=== PATIENT | male | born 1990 | race Caucasian/White ===

== ENCOUNTER 2017-10-05 15:08 | Emergency (ER) | payer MEDICAID ==
[~2017-10-05] VITALS: Ht 175.3 cm; Wt 100.0 kg
[~2017-10-05 15:08] MED LIST: ONDA8TAB9 PO
[2017-10-05] MEDS ORDERED: proCHLORperazine 10 MG/2 ml inj IV ONE (15:15)
[2017-10-05] MEDS ORDERED: normal saline 1000ML IV soln IVB ONE (15:15)
[2017-10-05 16:25] LABS: BASOPHILS % (AUTO) 0.1 % (0-1); EOSINOPHILS # (AUTO) 0.3 X10'3 (0-0.9); EOSINOPHILS % (AUTO) 1.9 % (0-6); HEMATOCRIT 41.6 % (42.0-52.0); LYMPHOCYTES % (AUTO) 14.1 % (21-51); MEAN CORPUSCULAR HEMOGLOBIN 29.2 PG (27.0-31.0); MEAN CORPUSCULAR HGB CONC 33.6 % (33.0-36.5); MEAN CORPUSCULAR VOLUME 87.1 FL (78-98); MEAN PLATELET VOLUME 8.3 FL (7.4-10.4); MONOCYTES # (AUTO) 0.7 X10'3 (0-0.9); MONOCYTES % (AUTO) 4.8 % (2-12); NEUTROPHILS # (AUTO) 11.1 X10'3 (1.8-7.7); NEUTROPHILS % (AUTO) 79.1 % (42-75); PLATELET COUNT 287 X10'3 (140-440); RED BLOOD COUNT 4.78 X10'6 (4.70-6.10); RED CELL DISTRIBUTION WIDTH 13.1 % (11.5-14.5)
[2017-10-05 16:42] LABS: CLARITY,URINE TURBID (Clear); GLUCOSE, URINE NEGATIVE (Neg); KETONES,URINE TRACE mg/dl (Neg); LEUKOCYTE ESTERASE ,URINE NEGATIVE (Neg); NITRITES, URINE NEGATIVE (Neg); OCCULT BLOOD,URINE NEGATIVE (Neg); PH,URINE 8.5 (4.8-8.0); PROTEIN,URINE 100 mg/dl (Neg)
[2017-10-05 16:43] LABS: COLOR,URINE DARK YELLOW (Yellow); UA COLLECTION TYPE CLN CATCH MIDSTREAM
[2017-10-05 16:43] LABS: ALANINE AMINOTRANSFERASE 24 U/L (12-78); ALBUMIN 3.7 G/DL (3.4-5.0); ALBUMIN/GLOBULIN RATIO 1.1 (1.1-1.5); ALKALINE PHOSPHATASE 90 IU/L (46-116); ANION GAP 9 (8-16); BILIRUBIN,TOTAL 0.3 MG/DL (0.1-1.0); BLOOD UREA NITROGEN 12 MG/DL (7-18); CALCIUM 8.9 MG/DL (8.5-10.1); CHLORIDE 108 MMOL/L (99-107); GLUCOSE 131 MG/DL (70-104); LIPASE < 50 U/L (73-393); SODIUM 145 MMOL/L (135-145); eGFR > 90 ML/MIN
[2017-10-05 16:49] LABS: AMORPHOUS PHOSPHATES 3+; BACTERIA,URINE FEW /HPF (Neg); RBC,URINE NONE SEEN /HPF (0-2); SPERM FEW /HPF (NEGATIVE); SQUAMOUS EPITHELIAL CELL,UR NONE SEEN /LPF (FEW); WBC,URINE 0-4 /HPF (0-4)
[2017-10-05 16:56] LABS: ASPARTATE AMINO TRANSFERASE 23 U/L (10-37); POTASSIUM 3.4 MMOL/L (3.5-5.1)
[2017-10-05] MEDS ORDERED: HYDROmorphone inj. 0.5 MG/0.5 ML DISP.SYRIN IV ONE (17:00)
[2017-10-05] MEDS ORDERED: haloperidol lactate 5mg/ml inj IM ONE (17:30)
[2017-10-05] MEDS ORDERED: diphenhydrAMINE 50 mg/ml inj IV ONE (17:30)
[2017-10-05] MEDS ORDERED: ONDA4TAB6 PO (20:01)
[2017-10-05 20:52] VITALS: BP 142/93
== END 2017-10-05 20:54 | disposition home or self-care (01) ==
LOC: ER 15:09
DX: R10.13 Epigastric pain (principal); R11.2 Nausea with vomiting, unspecified; R19.7 Diarrhea, unspecified; E11.9 Type 2 diabetes mellitus without complications; F12.10 Cannabis abuse, uncomplicated; F11.10 Opioid abuse, uncomplicated; F17.200 Nicotine dependence, unspecified, uncomplicated; Z88.8 Allergy status to other drugs, medicaments and biological substances; Z79.899 Other long term (current) drug therapy
CPT/HCPCS: 36415; 80053; 81001; 82948; 83690; 85025; 96361; 96372; 96374; 96375; 99284; J0780; J1170; J1200; J1630; J7030

== ENCOUNTER 2018-01-27 13:47 | Emergency (ER) | payer MEDICAID ==
[~2018-01-27] VITALS: Ht 175.3 cm; Wt 90.0 kg
[~2018-01-27 13:47] MED LIST changes: +ONDA4TAB6 PO
[2018-01-27 14:26] LABS: BASOPHILS % (AUTO) 0 % (0-1); EOSINOPHILS % (AUTO) 0 % (0-6); HEMATOCRIT 46.4 % (42.0-52.0); HEMOGLOBIN 15.7 g/dl (14.0-17.9); LYMPHOCYTES # (AUTO) 0.4 X10'3 (1.1-4.8); LYMPHOCYTES % (AUTO) 2.7 % (21-51); MEAN CORPUSCULAR HEMOGLOBIN 29.5 PG (27.0-31.0); MEAN CORPUSCULAR HGB CONC 33.8 % (33.0-36.5); MEAN CORPUSCULAR VOLUME 87.1 FL (78-98); MEAN PLATELET VOLUME 8.1 FL (7.4-10.4); MONOCYTES # (AUTO) 1.1 X10'3 (0-0.9); MONOCYTES % (AUTO) 6.7 % (2-12); NEUTROPHILS % (AUTO) 90.6 % (42-75); PLATELET COUNT 326 X10'3 (140-440); RED BLOOD COUNT 5.32 X10'6 (4.70-6.10); RED CELL DISTRIBUTION WIDTH 13.6 % (11.5-14.5); WHITE BLOOD COUNT 16.6 X10'3 (4.5-11.0)
[2018-01-27 14:38] LABS: ANISOCYTOSIS 1+; PLATELET ESTIMATE NORMAL; TOTAL CELLS COUNTED 100
[2018-01-27 14:41] LABS: ALANINE AMINOTRANSFERASE 20 U/L (12-78); ALBUMIN/GLOBULIN RATIO 1.1 (1.1-1.5); ALKALINE PHOSPHATASE 90 IU/L (46-116); ANION GAP 12 (8-16); ASPARTATE AMINO TRANSFERASE 14 U/L (10-37); BILIRUBIN,TOTAL 0.8 MG/DL (0.1-1.0); BLOOD UREA NITROGEN 18 MG/DL (7-18); BUN/CREATININE RATIO 19.8 (5.4-32.0); CALCIUM 8.9 MG/DL (8.5-10.1); CHLORIDE 106 MMOL/L (99-107); CREATININE 0.91 MG/DL (0.60-1.10); GLUCOSE 139 MG/DL (70-104); LIPASE < 50 U/L (73-393); POTASSIUM 3.6 MMOL/L (3.5-5.1); SODIUM 142 MMOL/L (135-145); TOTAL CARBON DIOXIDE 24.4 MMOL/L (24-32); TOTAL PROTEIN 7.6 G/DL (6.4-8.2); eGFR > 90 ML/MIN
[2018-01-27] MEDS ORDERED: ketorolac tromethamine 15mg/ml inj. IV ONE (15:15)
[2018-01-27] MEDS ORDERED: normal saline 1000ML IV soln IVB ONE ×3 (15:15→18:35)
[2018-01-27] MEDS ORDERED: ondansetron/PF 4mg/2ml inj IV ONE (15:15)
[2018-01-27] MEDS ORDERED: LORazepam 2 mg/ml vial IV ONE (16:45)
[2018-01-27 17:24] LABS: GASTRIC OCCULT BLOOD POSITIVE (Neg)
[2018-01-27 17:29] LABS: CLARITY,URINE CLEAR (Clear); COLOR,URINE YELLOW (Yellow); GLUCOSE, URINE NEGATIVE (Neg); KETONES,URINE 40 mg/dl (Neg); LEUKOCYTE ESTERASE ,URINE NEGATIVE (Neg); NITRITES, URINE NEGATIVE (Neg); OCCULT BLOOD,URINE NEGATIVE (Neg); PH,URINE 6.5 (4.8-8.0); PROTEIN,URINE 100 mg/dl (Neg); UROBILINOGEN,URINE 0.2 E.U/dL (0.2-1.0)
[2018-01-27 17:30] LABS: UA COLLECTION TYPE CLN CATCH MIDSTREAM
[2018-01-27 17:34] LABS: BACTERIA,URINE NONE SEEN /HPF (Neg); MUCUS STRANDS MODERATE /LPF (Neg); RBC,URINE NONE SEEN /HPF (0-2); SQUAMOUS EPITHELIAL CELL,UR FEW /LPF (FEW); WBC,URINE 0-4 /HPF (0-4)
[2018-01-27] MEDS ORDERED: proCHLORperazine 10 MG/2 ml inj IV ONE (18:35)
[2018-01-27] MEDS ORDERED: insulin regular, human 10 units/0.1 ml syringe IV ONE (19:30)
[2018-01-27] MEDS ORDERED: pantoprazole 40 MG vial IV ONE (20:40)
[2018-01-27 20:49] VITALS: BP 102/54
[2018-01-27 21:39] LABS: URINE AMPHETAMINE SCREEN NEGATIVE (Neg); URINE BARBITUATE SCREEN NEGATIVE (Neg); URINE BENZODIAZEPINES SCREEN NEGATIVE (Neg); URINE CANNABINOID SCREEN POSITIVE (Neg); URINE COCAINE SCREEN NEGATIVE (Neg); URINE METHADONE SCREEN NEGATIVE (Neg); URINE OPIATE SCREEN NEGATIVE (Neg); URINE PHENCYCLIDINE SCREEN NEGATIVE (Neg)
[2018-01-27] MEDS ORDERED: ONDA4TAB9 SL (21:42)
== END 2018-01-27 21:54 | disposition home or self-care (01) ==
LOC: ER 13:48
DX: E11.9 Type 2 diabetes mellitus without complications (principal); K29.70 Gastritis, unspecified, without bleeding; F12.10 Cannabis abuse, uncomplicated; F11.10 Opioid abuse, uncomplicated; Z88.8 Allergy status to other drugs, medicaments and biological substances; Z79.899 Other long term (current) drug therapy
CPT/HCPCS: 36415; 80053; 80305; 81001; 82271; 82948; 83690; 85025; 96361; 96374; 96375; 99285; C9113; J0780; J1815; J1885; J2060; J2405; J7030; 99284

== ENCOUNTER 2018-01-29 06:23 | Emergency (ER) | payer MEDICAID ==
[~2018-01-29] VITALS: Ht 175.3 cm; Wt 90.0 kg
[~2018-01-29 06:23] MED LIST changes: +ONDA4TAB9 SL
[2018-01-29] MEDS ORDERED: ketorolac trometh. 30mg/ml inj. IV ONE (06:45)
[2018-01-29] MEDS ORDERED: morphine 4 MG/ML inj SYRINge IV ONE (06:45)
[2018-01-29] MEDS ORDERED: LORazepam 2 mg/ml vial IV ONE (06:45)
[2018-01-29] MEDS ORDERED: normal saline 1000ML IV soln IVB ONE ×2 (06:45)
[2018-01-29] MEDS ORDERED: metoclopramide 5 mg/ml inj IV ONE (06:45)
[2018-01-29] MEDS ORDERED: diphenhydrAMINE 50 mg/ml inj IV ONE (06:45)
[2018-01-29 06:52] LABS: BASOPHILS % (AUTO) 0.3 % (0-1); EOSINOPHILS # (AUTO) 0.1 X10'3 (0-0.9); HEMATOCRIT 39.7 % (42.0-52.0); HEMOGLOBIN 13.4 g/dl (14.0-17.9); LYMPHOCYTES # (AUTO) 2.2 X10'3 (1.1-4.8); LYMPHOCYTES % (AUTO) 18.2 % (21-51); MEAN CORPUSCULAR HEMOGLOBIN 29.7 PG (27.0-31.0); MEAN CORPUSCULAR HGB CONC 33.7 % (33.0-36.5); MEAN CORPUSCULAR VOLUME 88.2 FL (78-98); MONOCYTES # (AUTO) 0.9 X10'3 (0-0.9); MONOCYTES % (AUTO) 7.1 % (2-12); NEUTROPHILS # (AUTO) 8.9 X10'3 (1.8-7.7); NEUTROPHILS % (AUTO) 73.4 % (42-75); PLATELET COUNT 322 X10'3 (140-440); RED CELL DISTRIBUTION WIDTH 13.5 % (11.5-14.5); WHITE BLOOD COUNT 12.1 X10'3 (4.5-11.0)
[2018-01-29 06:54] LABS: CLARITY,URINE SLIGHTLY CLOUDY (Clear); COLOR,URINE AMBER (Yellow); GLUCOSE, URINE NEGATIVE (Neg); KETONES,URINE 15 mg/dl (Neg); LEUKOCYTE ESTERASE ,URINE NEGATIVE (Neg); NITRITES, URINE NEGATIVE (Neg); OCCULT BLOOD,URINE NEGATIVE (Neg); PH,URINE 6.5 (4.8-8.0); PROTEIN,URINE 30 mg/dl (Neg)
[2018-01-29] MEDS ORDERED: ketorolac tromethamine 15mg/ml inj. IV ONE (06:55)
[2018-01-29 07:01] LABS: UA COLLECTION TYPE CLN CATCH MIDSTREAM
[2018-01-29 07:03] LABS: BACTERIA,URINE NONE SEEN /HPF (Neg); MUCUS STRANDS MANY /LPF (Neg); RBC,URINE NONE SEEN /HPF (0-2); SQUAMOUS EPITHELIAL CELL,UR NONE SEEN /LPF (FEW)
[2018-01-29 07:04] LABS: SPERM MODERATE /HPF (NEGATIVE)
[2018-01-29 07:06] LABS: ALANINE AMINOTRANSFERASE 27 U/L (12-78); ALBUMIN 3.7 G/DL (3.4-5.0); ALBUMIN/GLOBULIN RATIO 1.1 (1.1-1.5); ALKALINE PHOSPHATASE 79 IU/L (46-116); ANION GAP 12 (8-16); ASPARTATE AMINO TRANSFERASE 15 U/L (10-37); BILIRUBIN,TOTAL 0.3 MG/DL (0.1-1.0); BLOOD UREA NITROGEN 12 MG/DL (7-18); BUN/CREATININE RATIO 12.4 (5.4-32.0); CALCIUM 8.8 MG/DL (8.5-10.1); CHLORIDE 106 MMOL/L (99-107); CREATININE 0.97 MG/DL (0.60-1.10); GLUCOSE 113 MG/DL (70-104); LIPASE < 50 U/L (73-393); POTASSIUM 3.1 MMOL/L (3.5-5.1); SODIUM 145 MMOL/L (135-145); eGFR > 90 ML/MIN
[2018-01-29] MEDS ORDERED: cephalexin 250mg capsule PO ONE ×2 (08:15→08:55)
[2018-01-29] MEDS ORDERED: CEPH500C5 PO (08:16)
[2018-01-29] MEDS ORDERED: ONDA4TAB12 PO (08:21)
[2018-01-29 09:00] VITALS: BP 149/87
[2018-01-30] MEDS ORDERED: INSU100V12 SQ (11:53)
[2018-01-30] MEDS ORDERED: INSU100C10 SQ (11:53)
== END 2018-01-29 09:21 | disposition home or self-care (01) ==
LOC: ER 06:23
DX: R11.2 Nausea with vomiting, unspecified (principal); R10.13 Epigastric pain; N39.0 Urinary tract infection, site not specified; E11.9 Type 2 diabetes mellitus without complications; F12.10 Cannabis abuse, uncomplicated; F11.10 Opioid abuse, uncomplicated; Z79.899 Other long term (current) drug therapy; Z88.8 Allergy status to other drugs, medicaments and biological substances
CPT/HCPCS: 36415; 80053; 81001; 82948; 83690; 84145; 85025; 87088; 96361; 96374; 96375; 99284; J1200; J1885; J2060; J2270; J2765; J7030

== ENCOUNTER 2018-01-30 06:49 | Inpatient (IN) | payer MEDICAID ==
[~2018-01-30] VITALS: Ht 180.3 cm; Wt 88.0 kg
[~2018-01-30 06:49] MED LIST changes: +CEPH500C5 PO; +ONDA4TAB12 PO
[2018-01-30] MEDS ORDERED: CefTRIAXone 2gm/D5W 50ml 50 ML IV ONE (06:55)
[2018-01-30] MEDS ORDERED: LORazepam 2 mg/ml vial IV ONE (06:55)
[2018-01-30] MEDS ORDERED: metoclopramide 5 mg/ml inj IV ONE (06:55)
[2018-01-30] MEDS ORDERED: normal saline 1000ML IV soln IVB ONE ×3 (06:55→07:10)
[2018-01-30] MEDS ORDERED: diphenhydrAMINE 50 mg/ml inj IV ONE (06:55)
[2018-01-30] MEDS ORDERED: haloperidol lactate 5mg/ml inj IM ONE (07:10)
[2018-01-30] MEDS ORDERED: magnesium 2GM in 50ml NS 50 ML IV ONE (07:15)
[2018-01-30 07:28] LABS: BASOPHILS % (AUTO) 0.1 % (0-1); EOSINOPHILS % (AUTO) 0.1 % (0-6); HEMATOCRIT 39.8 % (42.0-52.0); HEMOGLOBIN 13.7 g/dl (14.0-17.9); LYMPHOCYTES # (AUTO) 1.7 X10'3 (1.1-4.8); LYMPHOCYTES % (AUTO) 11.5 % (21-51); MEAN CORPUSCULAR HEMOGLOBIN 29.7 PG (27.0-31.0); MEAN CORPUSCULAR HGB CONC 34.4 % (33.0-36.5); MEAN CORPUSCULAR VOLUME 86.5 FL (78-98); MEAN PLATELET VOLUME 8.5 FL (7.4-10.4); MONOCYTES # (AUTO) 0.2 X10'3 (0-0.9); MONOCYTES % (AUTO) 1.4 % (2-12); NEUTROPHILS # (AUTO) 13.1 X10'3 (1.8-7.7); NEUTROPHILS % (AUTO) 86.9 % (42-75); PLATELET COUNT 310 X10'3 (140-440); WHITE BLOOD COUNT 15.1 X10'3 (4.5-11.0)
[2018-01-30 07:48] LABS: ALANINE AMINOTRANSFERASE 32 U/L (12-78); ALBUMIN 3.6 G/DL (3.4-5.0); ALBUMIN/GLOBULIN RATIO 1.1 (1.1-1.5); ALKALINE PHOSPHATASE 82 IU/L (46-116); ANION GAP 18 (8-16); ASPARTATE AMINO TRANSFERASE 17 U/L (10-37); BILIRUBIN,TOTAL 0.8 MG/DL (0.1-1.0); BLOOD UREA NITROGEN 9 MG/DL (7-18); BUN/CREATININE RATIO 11.8 (5.4-32.0); CALCIUM 8.7 MG/DL (8.5-10.1); CHLORIDE 98 MMOL/L (99-107); CREATININE 0.76 MG/DL (0.60-1.10); GLUCOSE 313 MG/DL (70-104); LIPASE < 50 U/L (73-393); POTASSIUM 3.6 MMOL/L (3.5-5.1); SODIUM 136 MMOL/L (135-145); TOTAL CARBON DIOXIDE 20.3 MMOL/L (24-32); TOTAL PROTEIN 6.8 G/DL (6.4-8.2); eGFR > 90 ML/MIN
[2018-01-30] MEDS ORDERED: pantoprazole 40 MG vial IV ONE (08:35)
[2018-01-30] MEDS ORDERED: insulin regular, human 10 units/0.1 ml syringe SQ ONE (09:00)
[2018-01-30 09:11] LABS: PHOSPHORUS 1.7 MG/DL (2.3-4.5)
[2018-01-30 10:29] LABS: CLARITY,URINE CLEAR (Clear); COLOR,URINE STRAW (Yellow); GLUCOSE, URINE >=1000 mg/dl (Neg); KETONES,URINE >=80 mg/dl (Neg); LEUKOCYTE ESTERASE ,URINE NEGATIVE (Neg); NITRITES, URINE NEGATIVE (Neg); OCCULT BLOOD,URINE TRACE-INTACT (Neg); PROTEIN,URINE NEGATIVE (Neg); UROBILINOGEN,URINE 0.2 E.U/dL (0.2-1.0)
[2018-01-30 10:30] LABS: UA COLLECTION TYPE CLN CATCH MIDSTREAM
[2018-01-30 10:39] LABS: BACTERIA,URINE FEW /HPF (Neg); RBC,URINE 0-2 /HPF (0-2); SQUAMOUS EPITHELIAL CELL,UR FEW /LPF (FEW); WBC,URINE 0-4 /HPF (0-4)
[2018-01-30] MEDS: normal saline 1000ml 1,000 ML IV SCH ×2 (10:50→20:50)
[2018-01-30] MEDS ORDERED: ondansetron/PF 4mg/2ml inj IV PRN (10:50)
[2018-01-30] MEDS ORDERED: mag hydrox/Alum hydrox/simeth 30ml oral suspension PO PRN (10:50)
[2018-01-30] MEDS ORDERED: magnesium hydroxide 30ml (MOM) UD suspension PO PRN (10:50)
[2018-01-30] MEDS ORDERED: acetaminophen 325mg tablet PO PRN (10:50)
[2018-01-30 11:20] LABS: URINE AMPHETAMINE SCREEN NEGATIVE (Neg); URINE BARBITUATE SCREEN NEGATIVE (Neg); URINE BENZODIAZEPINES SCREEN NEGATIVE (Neg); URINE CANNABINOID SCREEN POSITIVE (Neg); URINE COCAINE SCREEN NEGATIVE (Neg); URINE METHADONE SCREEN NEGATIVE (Neg); URINE OPIATE SCREEN NEGATIVE (Neg); URINE PHENCYCLIDINE SCREEN NEGATIVE (Neg)
[2018-01-30] MEDS ORDERED: INSU100C10 SQ (11:53)
[2018-01-30] MEDS ORDERED: INSU100V12 SQ (11:53)
[2018-01-30] MEDS ORDERED: glucagon, human recombinant 1mg kit SUBCUT PRN (11:55)
[2018-01-30] MEDS ORDERED: dextrose 50%-water 50ml dispensing syringe IV PRN ×2 (11:55)
[2018-01-30] MEDS ORDERED: MESSAGE TO PHARMACY PO ONE (11:55)
[2018-01-30] MEDS ORDERED: dextrose ORAL solution 15 GM/59 ML bottle PO PRN ×2 (11:55)
[2018-01-30 12:46] LABS: HEMOGLOBIN A1C 6.7 % (4.5-6.2)
[2018-01-30 17:49] LABS: ANION GAP 11 (8-16); BLOOD UREA NITROGEN 6 MG/DL (7-18); BUN/CREATININE RATIO 8.7 (5.4-32.0); CALCIUM 7.7 MG/DL (8.5-10.1); CHLORIDE 104 MMOL/L (99-107); CREATININE 0.69 MG/DL (0.60-1.10); GLUCOSE 242 MG/DL (70-104); POTASSIUM 3.8 MMOL/L (3.5-5.1); SODIUM 137 MMOL/L (135-145); eGFR > 90 ML/MIN
[2018-01-30] MEDS: insulin Lispro (HumaLOG) vial - multi-dose SQ SCH (19:04)
[2018-01-30 19:45] VITALS: BP 125/74
[2018-01-30] MEDS: ondansetron/PF 4mg/2ml inj IV PRN (20:52)
[2018-01-30] MEDS ORDERED: insulin glargine (Lantus) pen - multi-dose SQ SCH (21:00)
[2018-01-30] MEDS ORDERED: proCHLORperazine 10 MG/2 ml inj IV ONE (22:10)
[2018-01-30] MEDS ORDERED: ketorolac tromethamine 15mg/ml inj. IV ONE (23:05)
[2018-01-31] VITALS: BP 124/71
[2018-01-31] MEDS: normal saline 1000ml 1,000 ML IV SCH ×3 (01:56→12:10)
[2018-01-31 04:52] LABS: BASOPHILS % (AUTO) 0.1 % (0-1); EOSINOPHILS # (AUTO) 0.1 X10'3 (0-0.9); EOSINOPHILS % (AUTO) 1.6 % (0-6); HEMATOCRIT 35.5 % (42.0-52.0); HEMOGLOBIN 11.9 g/dl (14.0-17.9); LYMPHOCYTES # (AUTO) 2.1 X10'3 (1.1-4.8); LYMPHOCYTES % (AUTO) 22.7 % (21-51); MEAN CORPUSCULAR HEMOGLOBIN 29.1 PG (27.0-31.0); MEAN CORPUSCULAR HGB CONC 33.5 % (33.0-36.5); MEAN CORPUSCULAR VOLUME 86.8 FL (78-98); MEAN PLATELET VOLUME 7.9 FL (7.4-10.4); MONOCYTES # (AUTO) 0.6 X10'3 (0-0.9); MONOCYTES % (AUTO) 6.3 % (2-12); NEUTROPHILS # (AUTO) 6.3 X10'3 (1.8-7.7); NEUTROPHILS % (AUTO) 69.3 % (42-75); PLATELET COUNT 271 X10'3 (140-440); RED CELL DISTRIBUTION WIDTH 12.7 % (11.5-14.5); WHITE BLOOD COUNT 9.1 X10'3 (4.5-11.0)
[2018-01-31] MEDS: ondansetron/PF 4mg/2ml inj IV PRN (05:16)
[2018-01-31 05:17] LABS: ALANINE AMINOTRANSFERASE 26 U/L (12-78); ALBUMIN 2.9 G/DL (3.4-5.0); ALBUMIN/GLOBULIN RATIO 1.1 (1.1-1.5); ALKALINE PHOSPHATASE 65 IU/L (46-116); ANION GAP 13 (8-16); ASPARTATE AMINO TRANSFERASE 9 U/L (10-37); BILIRUBIN,TOTAL 0.6 MG/DL (0.1-1.0); BLOOD UREA NITROGEN 6 MG/DL (7-18); BUN/CREATININE RATIO 8.6 (5.4-32.0); CALCIUM 7.9 MG/DL (8.5-10.1); CHLORIDE 104 MMOL/L (99-107); GLUCOSE 244 MG/DL (70-104); POTASSIUM 3.8 MMOL/L (3.5-5.1); SODIUM 137 MMOL/L (135-145); TOTAL PROTEIN 5.6 G/DL (6.4-8.2); eGFR > 90 ML/MIN
[2018-01-31 07:18] VITALS: BP 128/74
[2018-01-31] MEDS ORDERED: enoxaparin 40mg/0.4ml syringe SUBCUT SCH (08:00)
[2018-01-31] MEDS: insulin Lispro (HumaLOG) vial - multi-dose SQ SCH ×2 (08:04→12:57)
[2018-01-31] MEDS ORDERED: proCHLORperazine 10 MG/2 ml inj IV PRN (09:40)
[2018-01-31 11:44] VITALS: BP 142/73
== END 2018-01-31 15:49 | disposition home or self-care (01) | DRG 420 ==
LOC: ER 06:50 → ED HOLD 10:50 → EDBEDREQ 14:24 → SUR 3N 15:46
PROVIDERS: ADMIT Internal Medicine; ATTEND Internal Medicine
DX: E10.10 Type 1 diabetes mellitus with ketoacidosis without coma (principal); N39.0 Urinary tract infection, site not specified; R19.7 Diarrhea, unspecified; E86.0 Dehydration; F12.90 Cannabis use, unspecified, uncomplicated; Z76.5 Malingerer [conscious simulation]; Z83.3 Family history of diabetes mellitus; Z88.8 Allergy status to other drugs, medicaments and biological substances
CPT/HCPCS: 36415; 74176; 76700; 80048; 80053; 80305; 81001; 82948; 83036; 83690; 84100; 84145; 85025; 87070; 93005; 99285; A6258; C9113; J0696; J0780; J1200; J1630; J1650; J1815; J1885; J2060; J2405; J2765; J3475; J7030

== ENCOUNTER 2018-03-29 07:54 | Inpatient (IN) | payer MEDICAID ==
[~2018-03-29] VITALS: Ht 175.3 cm; Wt 72.6 kg
[~2018-03-29 07:54] MED LIST changes: -CEPH500C5 PO; +INSU100C10 SQ; +INSU100V12 SQ; -ONDA4TAB6 PO; -ONDA4TAB9 SL; -ONDA8TAB9 PO
[2018-03-29] MEDS ORDERED: insulin regular, human 100 UNIT in normal saline 100ml IV soln 100 ML IV PRN ×2 (08:15)
[2018-03-29] MEDS ORDERED: insulin regular, human 10 units/0.1 ml syringe IV ONE (08:15)
[2018-03-29] MEDS ORDERED: normal saline 1000ML IV soln IV ONE (08:20)
[2018-03-29 09:00] LABS: HEMATOCRIT 47.7 % (42.0-52.0); MEAN CORPUSCULAR HEMOGLOBIN 29.3 PG (27.0-31.0); MEAN CORPUSCULAR HGB CONC 33.7 % (33.0-36.5); MEAN CORPUSCULAR VOLUME 87.1 FL (78-98); MEAN PLATELET VOLUME 8.8 FL (7.4-10.4); PLATELET COUNT 424 X10'3 (140-440); RED BLOOD COUNT 5.48 X10'6 (4.70-6.10); RED CELL DISTRIBUTION WIDTH 13.6 % (11.5-14.5)
[2018-03-29 09:06] LABS: ABG BASE EXCESS -24.5 mmol/L (-2.0-3.0); ABG HCO3 3.1 mmol/L (22.0-26.0); ABG OXYGEN SATURATION 98.1 % (95-98); ABG PCO2 10.7 mmHg (35.0-45.0); ABG PO2 136.7 mmHg (60.0-100.0); CL (ABG) 93 mmol/L (99-107); FCOHb 0.5 % (0.5-1.5); FMetHb 0.4 % (0.3-1.12); FO2Hb 97.2 % (94-100); GLUCOSE (ABG) 509 mg/dl (70-105); IONIZED CA (ABG) 1.23 mmol/L (1.03-1.32); K (ABG) 4.8 mmol/L (3.3-5.1); NA (ABG) 124 mmol/L (135-145); TOTAL HEMOGLOBIN 15.1 G/dl (14.0-18.0)
[2018-03-29 09:21] LABS: TOTAL CELLS COUNTED 100
[2018-03-29 09:22] LABS: PLATELET ESTIMATE NORMAL; TOXIC VACUOLATION FEW
[2018-03-29 09:25] LABS: ALANINE AMINOTRANSFERASE 26 U/L (12-78); ALBUMIN 4.7 G/DL (3.4-5.0); ALBUMIN/GLOBULIN RATIO 1.1 (1.1-1.5); ALKALINE PHOSPHATASE 134 IU/L (46-116); ASPARTATE AMINO TRANSFERASE 15 U/L (10-37); BILIRUBIN,TOTAL 0.7 MG/DL (0.1-1.0); BLOOD UREA NITROGEN 35 MG/DL (7-18); BUN/CREATININE RATIO 20.7 (5.4-32.0); CALCIUM 8.9 MG/DL (8.5-10.1); CHLORIDE 80 MMOL/L (99-107); CREATININE 1.69 MG/DL (0.60-1.10); MAGNESIUM 2.4 MG/DL (1.5-2.4); PHOSPHORUS 5.7 MG/DL (2.3-4.5); TOTAL PROTEIN 8.9 G/DL (6.4-8.2); eGFR 49 ML/MIN
[2018-03-29 09:28] LABS: GLUCOSE 557 MG/DL (70-104)
[2018-03-29 09:29] LABS: ANION GAP 29 (8-16); POTASSIUM 5.6 MMOL/L (3.5-5.1); SODIUM 117 MMOL/L (135-145); TOTAL CARBON DIOXIDE 7.9 MMOL/L (24-32)
[2018-03-29 09:55] LABS: INR 1.1 INR; PARTIAL THROMBOPLASTIN TIME 29 SECONDS (22-32)
[2018-03-29 10:30] LABS: ALBUMIN 3.6 G/DL (3.4-5.0); ANION GAP 24 (8-16); BLOOD UREA NITROGEN 31 MG/DL (7-18); BUN/CREATININE RATIO 23.5 (5.4-32.0); CALCIUM 7.3 MG/DL (8.5-10.1); CHLORIDE 94 MMOL/L (99-107); CREATININE 1.32 MG/DL (0.60-1.10); GLUCOSE 386 MG/DL (70-104); POTASSIUM 5.3 MMOL/L (3.5-5.1); SODIUM 125 MMOL/L (135-145); eGFR 65 ML/MIN
[2018-03-29 10:33] LABS: TOTAL CARBON DIOXIDE 7.1 MMOL/L (24-32)
[2018-03-29 10:42] LABS: CLARITY,URINE CLEAR (Clear); COLOR,URINE YELLOW (Yellow); GLUCOSE, URINE >=1000 mg/dl (Neg); KETONES,URINE >=80 mg/dl (Neg); LEUKOCYTE ESTERASE ,URINE NEGATIVE (Neg); NITRITES, URINE NEGATIVE (Neg); OCCULT BLOOD,URINE SMALL (Neg); PH,URINE 5.5 (4.8-8.0); PROTEIN,URINE TRACE mg/dl (Neg); UROBILINOGEN,URINE 0.2 E.U/dL (0.2-1.0)
[2018-03-29 10:50] LABS: UA COLLECTION TYPE URINAL
[2018-03-29 10:51] LABS: BACTERIA,URINE NONE SEEN /HPF (Neg); MUCUS STRANDS FEW /LPF (Neg); RBC,URINE NONE SEEN /HPF (0-2); SQUAMOUS EPITHELIAL CELL,UR NONE SEEN /LPF (FEW); WBC,URINE NONE SEEN /HPF (0-4)
[2018-03-29 11:00] LABS: ABG BASE EXCESS -21.1 mmol/L (-2.0-3.0); ABG HCO3 4.3 mmol/L (22.0-26.0); ABG PCO2 (T) 11.5 mmHg (35.0-48.0); ABG PH (T) 7.188 (7.350-7.450); ABG PO2 (T) 116.9 mmHg (83-108); ALLEN'S TEST Positive; FCOHb 0.3 % (0.5-1.5); FMetHb 0.4 % (0.3-1.12); FO2Hb 97.3 % (94-100); TOTAL HEMOGLOBIN 15.3 G/dl (14.0-18.0)
[2018-03-29] MEDS ORDERED: proCHLORperazine 10 MG/2 ml inj IV STA (11:49)
[2018-03-29] MEDS ORDERED: potassium Cl 40MEQ/NS 500ml 500 ML IV PRN ×2 (12:10)
[2018-03-29] MEDS ORDERED: Neutra Phos packet PO PRN (12:10)
[2018-03-29] MEDS ORDERED: potassium CL 20mEq in D5-1/2NS 1,000 ML IV PRN (12:10)
[2018-03-29] MEDS ORDERED: sodium bicarbonate (8.4%) inj. 100 MEQ in sodium chloride 0.45% 500ml 500 ML IV PRN (12:10)
[2018-03-29] MEDS ORDERED: sodium phosphate inj. 15 MMOL in dextrose 5%-water 150 ML IV PRN (12:10)
[2018-03-29] MEDS ORDERED: bisacodyl 10mg suppository rectal RC PRN (12:10)
[2018-03-29] MEDS ORDERED: sodium bicarbonate (8.4%) inj. 50 MEQ in sodium chloride 0.45% 500ml 250 ML IV PRN (12:10)
[2018-03-29] MEDS ORDERED: magnesium 4gm in 100ml NS 100 ML IV PRN (12:10)
[2018-03-29] MEDS ORDERED: insulin regular, human 10 units/0.1 ml syringe SQ PRN (12:10)
[2018-03-29] MEDS ORDERED: acetaminophen 325mg tablet PO PRN (12:10)
[2018-03-29] MEDS ORDERED: magnesium 1gm/100ml D5W IVPB 50 ML IV PRN (12:10)
[2018-03-29] MEDS: insulin regular, DKA only 100 UNIT in normal saline 100ml IV soln 99 ML IV SCH ×4 (12:39→20:50)
[2018-03-29] MEDS: normal saline 1000ml 1,000 ML IV SCH ×3 (12:42→20:06)
[2018-03-29] MEDS ORDERED: sodium bicarbonate (8.4%) inj. 50 MEQ in dextrose 5%-water 250 ML IV PRN (15:38)
[2018-03-29] MEDS ORDERED: sodium bicarbonate (8.4%) inj. 100 MEQ in dextrose 5% water 500ml 500 ML IV PRN (15:41)
[2018-03-29 15:55] LABS: ALBUMIN 3.9 G/DL (3.4-5.0); ANION GAP 18 (8-16); BLOOD UREA NITROGEN 26 MG/DL (7-18); BUN/CREATININE RATIO 22.2 (5.4-32.0); CALCIUM 8.2 MG/DL (8.5-10.1); CHLORIDE 99 MMOL/L (99-107); CREATININE 1.17 MG/DL (0.60-1.10); GLUCOSE 190 MG/DL (70-104); POTASSIUM 4.4 MMOL/L (3.5-5.1); SODIUM 130 MMOL/L (135-145); eGFR 75 ML/MIN
[2018-03-29 15:58] LABS: TOTAL CARBON DIOXIDE 13.3 MMOL/L (24-32)
[2018-03-29 16:30] VITALS: BP 134/84
[2018-03-29] MEDS: proCHLORperazine 10 MG/2 ml inj IV PRN (16:58)
[2018-03-29] MEDS ORDERED: HYDROmorphone 1 mg/ml syringe IV PRN ×2 (17:20)
[2018-03-29 18:00] VITALS: BP 123/83
[2018-03-29] MEDS: sodium phosphate inj. 30 MMOL in dextrose 5%-water 250 ML IV PRN (19:54)
[2018-03-29 20:09] LABS: ALBUMIN 3.7 G/DL (3.4-5.0); ANION GAP 14 (8-16); BLOOD UREA NITROGEN 21 MG/DL (7-18); BUN/CREATININE RATIO 20.2 (5.4-32.0); CALCIUM 8.1 MG/DL (8.5-10.1); CHLORIDE 101 MMOL/L (99-107); CREATININE 1.04 MG/DL (0.60-1.10); GLUCOSE 119 MG/DL (70-104); POTASSIUM 3.7 MMOL/L (3.5-5.1); SODIUM 133 MMOL/L (135-145); TOTAL CARBON DIOXIDE 17.7 MMOL/L (24-32); eGFR 86 ML/MIN
[2018-03-29] MEDS ORDERED: ondansetron/PF 4mg/2ml inj IV PRN (20:45)
[2018-03-29] MEDS ORDERED: normal saline 1000ml 1,000 ML IV ONE (20:45)
[2018-03-29] MEDS ORDERED: diphenhydrAMINE 50 mg/ml inj IV PRN (21:20)
[2018-03-29] MEDS: Potassium Cl inj 20 MEQ in DEXTROSE 10 % AND 0.45 % NACL 990 ML IV SCH (21:25)
[2018-03-29] MEDS: pantoprazole 40 MG vial IV SCH (21:28)
[2018-03-29] MEDS: nicotine 21mg patch - 24 hr TD SCH (21:31)
[2018-03-29 22:00] VITALS: BP 120/79
[2018-03-30] MEDS: normal saline 1000ml 1,000 ML IV SCH ×2 (00:10→04:10)
[2018-03-30] MEDS: Potassium Cl inj 20 MEQ in DEXTROSE 10 % AND 0.45 % NACL 990 ML IV SCH (02:24)
[2018-03-30] MEDS: insulin regular, DKA only 100 UNIT in normal saline 100ml IV soln 99 ML IV SCH ×2 (02:25)
[2018-03-30 05:15] LABS: BASOPHILS % (AUTO) 0.3 % (0-1); EOSINOPHILS % (AUTO) 0.1 % (0-6); HEMATOCRIT 38.3 % (42.0-52.0); HEMOGLOBIN 12.9 g/dl (14.0-17.9); LYMPHOCYTES # (AUTO) 1.2 X10'3 (1.1-4.8); LYMPHOCYTES % (AUTO) 8.8 % (21-51); MEAN CORPUSCULAR HEMOGLOBIN 29.1 PG (27.0-31.0); MEAN CORPUSCULAR HGB CONC 33.8 % (33.0-36.5); MEAN CORPUSCULAR VOLUME 86.1 FL (78-98); MEAN PLATELET VOLUME 8.2 FL (7.4-10.4); MONOCYTES # (AUTO) 1.1 X10'3 (0-0.9); MONOCYTES % (AUTO) 8.2 % (2-12); NEUTROPHILS # (AUTO) 11.4 X10'3 (1.8-7.7); NEUTROPHILS % (AUTO) 82.6 % (42-75); PLATELET COUNT 272 X10'3 (140-440); RED BLOOD COUNT 4.45 X10'6 (4.70-6.10); RED CELL DISTRIBUTION WIDTH 13.7 % (11.5-14.5); WHITE BLOOD COUNT 13.8 X10'3 (4.5-11.0)
[2018-03-30 06:00] VITALS: BP 116/68
[2018-03-30 06:50] LABS: ALANINE AMINOTRANSFERASE 15 U/L (12-78); ALBUMIN 3.1 G/DL (3.4-5.0); ALBUMIN/GLOBULIN RATIO 1.1 (1.1-1.5); ALKALINE PHOSPHATASE 71 IU/L (46-116); ANION GAP 7 (8-16); ASPARTATE AMINO TRANSFERASE 15 U/L (10-37); BILIRUBIN,TOTAL 0.7 MG/DL (0.1-1.0); BLOOD UREA NITROGEN 14 MG/DL (7-18); BUN/CREATININE RATIO 18.9 (5.4-32.0); CALCIUM 7.8 MG/DL (8.5-10.1); CHLORIDE 105 MMOL/L (99-107); CREATININE 0.74 MG/DL (0.60-1.10); GLUCOSE 176 MG/DL (70-104); MAGNESIUM 1.9 MG/DL (1.5-2.4); POTASSIUM 3.4 MMOL/L (3.5-5.1); SODIUM 134 MMOL/L (135-145); TOTAL CARBON DIOXIDE 21.9 MMOL/L (24-32); TOTAL PROTEIN 5.9 G/DL (6.4-8.2); eGFR > 90 ML/MIN
[2018-03-30 06:55] LABS: PHOSPHORUS 1.1 MG/DL (2.3-4.5)
[2018-03-30] MEDS ORDERED: Potassium Cl inj 20 MEQ in normal saline 1000ml 990 ML IV SCH (07:30)
[2018-03-30] MEDS ORDERED: glucagon, human recombinant 1mg kit SUBCUT PRN (07:45)
[2018-03-30] MEDS ORDERED: dextrose ORAL solution 15 GM/59 ML bottle PO PRN ×2 (07:45)
[2018-03-30] MEDS ORDERED: dextrose 50%-water 50ml dispensing syringe IV PRN (07:45)
[2018-03-30] MEDS: sodium phosphate inj. 30 MMOL in dextrose 5%-water 250 ML IV PRN (07:47)
[2018-03-30] MEDS: insulin Lispro (HumaLOG) vial - multi-dose SQ SCH ×2 (07:53→13:38)
[2018-03-30] MEDS ORDERED: K and/or MAG REPLACEMENT MC SCH (08:00)
[2018-03-30] MEDS: proCHLORperazine 10 MG/2 ml inj IV PRN ×2 (08:20→14:03)
[2018-03-30] MEDS: nicotine 21mg patch - 24 hr TD SCH (08:53)
[2018-03-30] MEDS: pantoprazole 40 MG vial IV SCH (08:54)
[2018-03-30 11:00] VITALS: BP 116/69
[2018-03-30] MEDS ORDERED: PROC10TA10 PO (17:05)
[2018-03-30] MEDS ORDERED: NICO-687 TD (17:08)
== END 2018-03-30 18:00 | disposition home or self-care (01) | DRG 243 ==
LOC: ER 07:55 → ED HOLD 12:10 → EDBEDREQ 15:08 → PCU 3S 16:15
PROVIDERS: ADMIT Family Medicine; ATTEND Family Medicine
DX: K20.9 Esophagitis, unspecified (principal); E10.10 Type 1 diabetes mellitus with ketoacidosis without coma; E87.1 Hypo-osmolality and hyponatremia; E86.0 Dehydration; I49.9 Cardiac arrhythmia, unspecified; F12.90 Cannabis use, unspecified, uncomplicated; F17.210 Nicotine dependence, cigarettes, uncomplicated; Z83.3 Family history of diabetes mellitus; Z88.8 Allergy status to other drugs, medicaments and biological substances; Z71.6 Tobacco abuse counseling; Z79.899 Other long term (current) drug therapy
CPT/HCPCS: 36415; 36600; 71045; 80048; 80053; 81001; 82330; 82435; 82803; 82947; 82948; 83036; 83605; 83735; 84100; 84132; 84145; 84295; 84484; 85018; 85025; 85610; 85730; 87040; 87070; 93005; 96365; 96366; 96375; 99291; 99292; C9113; J0780; J1200; J1815; J3480; J7030; J7060

== ENCOUNTER 2018-12-22 17:21 | Emergency (ER) | payer MEDICAID ==
[~2018-12-22] VITALS: Ht 175.3 cm; Wt 78.2 kg
[~2018-12-22 17:21] MED LIST changes: +NICO-687 TD; -ONDA4TAB12 PO; +PROC10TA10 PO
[2018-12-22 17:54] VITALS: BP 118/68
[2018-12-22] MEDS ORDERED: LIDOcaine 1% w/epiNEPHrine 1:200,000 30ml vial IM ONE (18:00)
[2018-12-22] MEDS ORDERED: SULF1TAB49 PO (18:38)
[2018-12-22] MEDS ORDERED: CEPH-572 PO (18:38)
== END 2018-12-22 19:16 | disposition home or self-care (01) ==
LOC: ER 17:22
DX: L02.411 Cutaneous abscess of right axilla (principal); E10.9 Type 1 diabetes mellitus without complications; F17.200 Nicotine dependence, unspecified, uncomplicated; F12.90 Cannabis use, unspecified, uncomplicated; Z88.8 Allergy status to other drugs, medicaments and biological substances; Z79.4 Long term (current) use of insulin; Z79.899 Other long term (current) drug therapy
CPT/HCPCS: 10060; 99283; J3490

== ENCOUNTER 2019-04-07 17:48 | Emergency (ER) | payer MEDICAID ==
[~2019-04-07] VITALS: Ht 172.7 cm; Wt 80.3 kg
[~2019-04-07 17:48] MED LIST changes: +AMOX-580 PO
[2019-04-07 18:09] VITALS: BP 115/67
[2019-04-07] MEDS ORDERED: CEPH-572 PO (19:52)
[2019-04-07] MEDS ORDERED: SULF1TAB49 PO (19:52)
[2019-04-07] MEDS ORDERED: sulfamethoxazole/trimethoprim DS (800/160mg) tablet PO ONE (19:55)
== END 2019-04-07 20:04 | disposition home or self-care (01) ==
LOC: ER 17:49
DX: S50.862A Insect bite (nonvenomous) of left forearm, initial encounter (principal); L02.414 Cutaneous abscess of left upper limb; E10.9 Type 1 diabetes mellitus without complications; F12.90 Cannabis use, unspecified, uncomplicated; Z88.8 Allergy status to other drugs, medicaments and biological substances; Z79.4 Long term (current) use of insulin; Z79.899 Other long term (current) drug therapy; W57.XXXA Bitten or stung by nonvenomous insect and other nonvenomous arthropods, initial encounter; Y93.89 Activity, other specified; Y92.89 Other specified places as the place of occurrence of the external cause; Y99.8 Other external cause status
CPT/HCPCS: 99283

== ENCOUNTER 2020-01-15 19:51 | Emergency (ER) | payer BC, MEDICAID ==
[~2020-01-15] VITALS: Ht 172.7 cm; Wt 84.0 kg
[~2020-01-15 19:51] MED LIST changes: -AMOX-580 PO
[2020-01-15 20:00] VITALS: BP 133/85
[2020-01-15] MEDS ORDERED: SULF1TAB49 PO (20:22)
[2020-01-15] MEDS ORDERED: proCHLORperazine 10mg tablet PO ONE (20:25)
[2020-01-15] MEDS ORDERED: sulfamethoxazole/trimethoprim DS (800/160mg) tablet PO ONE (20:25)
== END 2020-01-15 20:59 | disposition home or self-care (01) ==
LOC: ER 19:52
DX: L03.211 Cellulitis of face (principal); E10.9 Type 1 diabetes mellitus without complications; F12.90 Cannabis use, unspecified, uncomplicated; Z88.8 Allergy status to other drugs, medicaments and biological substances; Z79.2 Long term (current) use of antibiotics; Z79.899 Other long term (current) drug therapy
CPT/HCPCS: 99283; Q0164

== ENCOUNTER 2020-01-17 14:35 | Emergency (ER) | payer BC, MEDICAID ==
[~2020-01-17] VITALS: Ht 172.7 cm; Wt 82.4 kg
[~2020-01-17 14:35] MED LIST changes: +SULF1TAB49 PO
[2020-01-17 14:49] VITALS: BP 132/69
[2020-01-17] MEDS ORDERED: HYDROcodone/acetaminophen 10/325mg tab PO ONE (15:50)
[2020-01-17] MEDS ORDERED: LIDOcaine 1% W/epiNEPHrine 1:200,000 10ml vial IJ ONE (15:55)
[2020-01-17] MEDS ORDERED: AMOX-422 PO (16:31)
== END 2020-01-17 16:45 | disposition home or self-care (01) ==
LOC: ER 14:35
DX: L02.01 Cutaneous abscess of face (principal); E10.9 Type 1 diabetes mellitus without complications; F12.90 Cannabis use, unspecified, uncomplicated; Z79.4 Long term (current) use of insulin; Z88.8 Allergy status to other drugs, medicaments and biological substances; Z79.899 Other long term (current) drug therapy
CPT/HCPCS: 10060; 87070; 87077; 87186; 99283

== ENCOUNTER 2020-01-18 13:31 | Emergency (ER) | payer BC, MEDICAID ==
[~2020-01-18] VITALS: Ht 172.7 cm; Wt 82.0 kg
[~2020-01-18 13:31] MED LIST changes: +AMOX-422 PO
[2020-01-18] MEDS ORDERED: LIDOcaine 1% W/epiNEPHrine 1:200,000 10ml vial IJ ONE (14:00)
[2020-01-18 15:07] VITALS: BP 126/80
== END 2020-01-18 15:08 | disposition home or self-care (01) ==
LOC: ER 13:32
DX: L02.01 Cutaneous abscess of face (principal); E11.9 Type 2 diabetes mellitus without complications; F12.90 Cannabis use, unspecified, uncomplicated; Z86.14 Personal history of Methicillin resistant Staphylococcus aureus infection; Z88.8 Allergy status to other drugs, medicaments and biological substances; Z79.4 Long term (current) use of insulin; Z79.899 Other long term (current) drug therapy
CPT/HCPCS: 96374; 99283

== ENCOUNTER 2020-01-21 08:14 | Emergency (ER) | payer BC, MEDICAID ==
[~2020-01-21] VITALS: Ht 175.3 cm; Wt 84.7 kg
[2020-01-21 08:16] VITALS: BP 129/78
--- NOTE | 2020-01-21 09:17 | NUR ---
DR HILL REMOVED AND REPLACED PACKING OF WOUND WITHOUT COMPLICATION.
== END 2020-01-21 09:27 | disposition home or self-care (01) ==
LOC: ER 08:14
DX: Z48.01 Encounter for change or removal of surgical wound dressing (principal); R51 Headache; R22.0 Localized swelling, mass and lump, head; E11.9 Type 2 diabetes mellitus without complications; F12.90 Cannabis use, unspecified, uncomplicated; F17.210 Nicotine dependence, cigarettes, uncomplicated; Z86.14 Personal history of Methicillin resistant Staphylococcus aureus infection; Z88.8 Allergy status to other drugs, medicaments and biological substances; Z79.899 Other long term (current) drug therapy
CPT/HCPCS: 99282

== ENCOUNTER 2020-03-24 05:52 | Emergency (ER) | payer BC, MEDICAID ==
[~2020-03-24] VITALS: Ht 172.7 cm; Wt 82.0 kg
[~2020-03-24 05:52] MED LIST changes: -AMOX-422 PO; -SULF1TAB49 PO
[2020-03-24 08:00] VITALS: BP 128/80
== END 2020-03-24 08:03 | disposition home or self-care (01) ==
LOC: ER 05:53
DX: S00.33XD Contusion of nose, subsequent encounter (principal); J34.1 Cyst and mucocele of nose and nasal sinus; E10.9 Type 1 diabetes mellitus without complications; G43.909 Migraine, unspecified, not intractable, without status migrainosus; F17.200 Nicotine dependence, unspecified, uncomplicated; F12.90 Cannabis use, unspecified, uncomplicated; Z86.14 Personal history of Methicillin resistant Staphylococcus aureus infection; Z88.8 Allergy status to other drugs, medicaments and biological substances; Z88.5 Allergy status to narcotic agent; Z79.4 Long term (current) use of insulin; Z79.899 Other long term (current) drug therapy; X58.XXXA Exposure to other specified factors, initial encounter; Y93.89 Activity, other specified; Y92.89 Other specified places as the place of occurrence of the external cause; Y99.8 Other external cause status
CPT/HCPCS: 70486; 99284

== ENCOUNTER 2020-12-07 01:24 | Emergency (ER) | payer BC, MEDICAID ==
[~2020-12-07] VITALS: Ht 172.7 cm; Wt 75.0 kg
[2020-12-07 01:28] VITALS: BP 128/66
[2020-12-07] MEDS ORDERED: ketorolac tromethamine 15mg/ml inj. IM ONE (01:55)
== END 2020-12-07 02:09 | disposition home or self-care (01) ==
LOC: ER 01:25
DX: M79.671 Pain in right foot (principal); E11.9 Type 2 diabetes mellitus without complications; F12.90 Cannabis use, unspecified, uncomplicated; Z86.14 Personal history of Methicillin resistant Staphylococcus aureus infection; Z88.8 Allergy status to other drugs, medicaments and biological substances; Z79.4 Long term (current) use of insulin; Z79.899 Other long term (current) drug therapy
CPT/HCPCS: 73630; 96372; 99283; J1885

== ENCOUNTER 2022-05-28 09:03 | Emergency (ER) | payer MEDICAID ==
[~2022-05-28] VITALS: Ht 172.7 cm; Wt 88.6 kg
[2022-05-28 09:32] VITALS: BP 125/67
[2022-05-28] MEDS ORDERED: SULF1TAB49 PO (10:20)
== END 2022-05-28 10:37 | disposition home or self-care (01) ==
LOC: ER 09:03
DX: L03.113 Cellulitis of right upper limb (principal); E11.9 Type 2 diabetes mellitus without complications; Z86.14 Personal history of Methicillin resistant Staphylococcus aureus infection; F12.10 Cannabis abuse, uncomplicated; Z79.899 Other long term (current) drug therapy; Z88.8 Allergy status to other drugs, medicaments and biological substances; Z79.82 Long term (current) use of aspirin
CPT/HCPCS: 82948; 99283; 99284

== ENCOUNTER 2023-09-11 14:18 | Inpatient (IN) | payer MEDICAID ==
[~2023-09-11] VITALS: Ht 172.7 cm; Wt 72.7 kg
[~2023-09-11 14:18] MED LIST changes: -PROC10TA10 PO; +PROC10TA97 PO
[2023-09-11] MEDS ORDERED: potassium Cl 40MEQ/1/2NS 520ml 520 ML IV PRN ×2 (20:40)
[2023-09-11] MEDS ORDERED: potassium Cl 20 mEq SR tablet PO PRN ×2 (20:40)
[2023-09-11] MEDS ORDERED: Insulin Reg/NS 100units/100mL 100 ML IV SCH (20:40)
[2023-09-11] MEDS ORDERED: insulin regular, human U-100 3ml vial - multi-dose IV PRN (20:40)
[2023-09-11] MEDS ORDERED: sodium phosphate inj. 15 MMOL in dextrose 5%-water 250 ML IV PRN (20:40)
[2023-09-11] MEDS ORDERED: sodium bicarbonate (8.4%) inj. 50 MEQ in dextrose 5% water 500ml 250 ML IV PRN (20:40)
[2023-09-11] MEDS ORDERED: Neutra Phos packet PO PRN (20:40)
[2023-09-11] MEDS ORDERED: potassium CL 20mEq in D5-1/2NS 1,000 ML IV PRN (20:40)
[2023-09-11] MEDS ORDERED: sodium bicarbonate (8.4%) inj. 100 MEQ in dextrose 5% water 500ml 500 ML IV PRN (20:40)
[2023-09-11] MEDS ORDERED: sodium phosphate inj. 30 MMOL in dextrose 5%-water 250 ML IV PRN (20:40)
[2023-09-11 20:44] LABS: HEMOGLOBIN 14.8 g/dl (14.0-17.9); MEAN CORPUSCULAR VOLUME 89.2 FL (78-98); PLATELET COUNT 629 X10'3 (140-440)
[2023-09-11 20:46] LABS: BASOPHILS # (AUTO) 0.2 X10'3 (0-0.2); BASOPHILS % (AUTO) 0.7 % (0-1); EOSINOPHILS % (AUTO) 0 % (0-6); LYMPHOCYTES # (AUTO) 1.5 X10'3 (1.1-4.8); LYMPHOCYTES % (AUTO) 4.4 % (21-51); MEAN CORPUSCULAR HEMOGLOBIN 29.3 PG (27.0-31.0); MEAN CORPUSCULAR HGB CONC 32.9 g/dL (33.0-36.5); MEAN PLATELET VOLUME 7.4 FL (7.4-10.4); MONOCYTES % (AUTO) 2.9 % (2-12); NEUTROPHILS # (AUTO) 30.8 X10'3 (1.8-7.7); RED BLOOD COUNT 5.04 X10'6 (4.70-6.10)
[2023-09-11] MEDS: normal saline 1000ml 1,000 ML IV SCH ×3 (20:50→22:45)
[2023-09-11 20:52] LABS: WHITE BLOOD COUNT 33.5 X10'3 (4.5-11.0)
[2023-09-11 21:04] LABS: ALANINE AMINOTRANSFERASE 37 U/L (12-78); ALBUMIN 3.9 G/DL (3.4-5.0); ALBUMIN/GLOBULIN RATIO 0.7 (1.1-1.5); ALKALINE PHOSPHATASE 159 IU/L (46-116); ANION GAP 27 (8-16); ASPARTATE AMINO TRANSFERASE 21 U/L (10-37); BILIRUBIN,TOTAL 0.6 MG/DL (0.1-1.0); BLOOD UREA NITROGEN 44 MG/DL (7-18); BUN/CREATININE RATIO 23.5 (10.0-20.0); CALCIUM 9.5 MG/DL (8.5-10.1); CHLORIDE 86 MMOL/L (99-107); CREATININE 1.87 MG/DL (0.60-1.10); MAGNESIUM 2.4 MG/DL (1.5-2.4); PHOSPHORUS 4.4 MG/DL (2.3-4.5); POTASSIUM 4.9 MMOL/L (3.5-5.1); SODIUM 126 MMOL/L (135-145); TOTAL PROTEIN 9.4 G/DL (6.4-8.2); eCRCL 55 ML/MIN; eGFR 42 ML/MIN
[2023-09-11 21:11] LABS: GLUCOSE 467 MG/DL (70-104); TOTAL CARBON DIOXIDE 13.5 MMOL/L (24-32)
[2023-09-11] MEDS ORDERED: aspirin 325mg tablet PO ONE (21:25)
[2023-09-11 21:49] LABS: TOTAL CELLS COUNTED 100; TOXIC GRANULATION 1+; TOXIC VACUOLATION FEW
[2023-09-11 21:50] LABS: PLATELET ESTIMATE INCREASED; STOMATOCYTES FEW
[2023-09-11] MEDS ORDERED: proCHLORperazine 10 MG/2 ml inj IV ONE (22:25)
[2023-09-11 22:53] LABS: ABG BASE EXCESS -9.1 mmol/L (-2.0-2.0); ABG HCO3 13.7 mmol/L (22.0-26.0); ABG OXYGEN SATURATION 96.8 % (94-97); ABG PCO2 (T) 23.1 mmHg (35.0-48.0); ABG PH (T) 7.391 (7.340-7.440); ABG PO2 (T) 89.8 mmHg (75.0-100.0); FCOHb 0.1 % (0.0-3.9); FHHb 3.2 % (0.0-5.0); FMetHb 0.2 % (0.0-1.5); FO2Hb 96.5 % (94-97); MODE ROOM AIR; TOTAL HEMOGLOBIN 14.3 G/dl (14.0-17.9)
[2023-09-12] MEDS: normal saline 1000ml 1,000 ML IV SCH ×6 (00:40→11:06)
[2023-09-12 01:43] LABS: EOSINOPHILS % (AUTO) 0 % (0-6); HEMOGLOBIN 13.8 g/dl (14.0-17.9)
[2023-09-12 01:45] LABS: BASOPHILS # (AUTO) 0.2 X10'3 (0-0.2); BASOPHILS % (AUTO) 0.7 % (0-1); HEMATOCRIT 41.3 % (42.0-52.0); LYMPHOCYTES % (AUTO) 6.8 % (21-51); MEAN CORPUSCULAR HEMOGLOBIN 29.5 PG (27.0-31.0); MEAN CORPUSCULAR HGB CONC 33.5 g/dL (33.0-36.5); MEAN CORPUSCULAR VOLUME 87.9 FL (78-98); MEAN PLATELET VOLUME 7.1 FL (7.4-10.4); MONOCYTES # (AUTO) 1.8 X10'3 (0-0.9); MONOCYTES % (AUTO) 6.2 % (2-12); NEUTROPHILS # (AUTO) 24.8 X10'3 (1.8-7.7); NEUTROPHILS % (AUTO) 86.3 % (42-75); PLATELET COUNT 552 X10'3 (140-440)
[2023-09-12] MEDS ORDERED: dextrose 5%-1/2 normal saline 1,000 ML IV SCH (01:45)
[2023-09-12 01:48] LABS: WHITE BLOOD COUNT 28.8 X10'3 (4.5-11.0)
[2023-09-12 01:55] LABS: ALANINE AMINOTRANSFERASE 34 U/L (12-78); ALBUMIN 3.2 G/DL (3.4-5.0); ALBUMIN/GLOBULIN RATIO 0.7 (1.1-1.5); ALKALINE PHOSPHATASE 132 IU/L (46-116); ANION GAP 14 (8-16); ASPARTATE AMINO TRANSFERASE 18 U/L (10-37); BILIRUBIN,TOTAL 0.4 MG/DL (0.1-1.0); BLOOD UREA NITROGEN 40 MG/DL (7-18); BUN/CREATININE RATIO 26.5 (10.0-20.0); CALCIUM 8.6 MG/DL (8.5-10.1); CHLORIDE 100 MMOL/L (99-107); CREATININE 1.51 MG/DL (0.60-1.10); GLUCOSE 203 MG/DL (70-104); MAGNESIUM 2.2 MG/DL (1.5-2.4); PHOSPHORUS 2.7 MG/DL (2.3-4.5); POTASSIUM 4.2 MMOL/L (3.5-5.1); SODIUM 135 MMOL/L (135-145); TOTAL CARBON DIOXIDE 21.2 MMOL/L (24-32); TOTAL PROTEIN 7.9 G/DL (6.4-8.2); eCRCL 68 ML/MIN; eGFR 54 ML/MIN
[2023-09-12 03:03] LABS: TOTAL CELLS COUNTED 100
[2023-09-12 03:04] LABS: PLATELET ESTIMATE INCREASED; TOXIC GRANULATION 1+; TOXIC VACUOLATION FEW
[2023-09-12] MEDS ORDERED: HYDROcodone/acetaminophen 5mg/325mg tablet PO PRN (03:10)
[2023-09-12] MEDS ORDERED: morphine 2 MG/ML inj. syringe IV PRN ×2 (03:10)
[2023-09-12] MEDS ORDERED: ondansetron 4mg rapidly disintigrating tab PO PRN (03:10)
[2023-09-12] MEDS ORDERED: HYDROcodone/acetaminophen 10/325mg tab PO PRN (03:10)
[2023-09-12] MEDS ORDERED: mag hydrox/Alum hydrox/simeth 30ml oral suspension PO PRN (03:10)
[2023-09-12] MEDS ORDERED: ondansetron/PF 4mg/2ml inj IV PRN (03:10)
[2023-09-12] MEDS ORDERED: acetaminophen 325mg tablet PO PRN ×2 (03:10)
[2023-09-12] MEDS ORDERED: magnesium hydroxide 30ml (MOM) UD suspension PO PRN (03:10)
[2023-09-12] MEDS ORDERED: bisacodyl 10mg suppository rectal RC PRN (03:10)
[2023-09-12] MEDS ORDERED: metoclopramide 5 mg/ml inj IV PRN (03:10)
[2023-09-12] MEDS ORDERED: glucagon, human recombinant 1mg kit SUBCUT PRN (03:15)
[2023-09-12] MEDS ORDERED: dextrose 50%-water 50ml dispensing syringe IV PRN ×2 (03:15)
[2023-09-12] MEDS ORDERED: insulin Lispro (HumaLOG) vial - multi-dose SQ SCH (03:15)
[2023-09-12] MEDS ORDERED: DEXTROSE 15 GM of carb/4 tabs (each vial/BOTTLE has 4 tablets) PO PRN ×2 (03:15)
[2023-09-12] MEDS ORDERED: MESSAGE TO PHARMACY PO ONE (03:15)
[2023-09-12] MEDS ORDERED: pantoprazole 40mg Tablet.DR PO SCH (07:30)
[2023-09-12] MEDS ORDERED: nicotine 21mg patch - 24 hr TD SCH (08:00)
[2023-09-12] MEDS ORDERED: K and/or MAG REPLACEMENT MC SCH (08:00)
[2023-09-12] MEDS ORDERED: heparin, porcine 5000 units/ml vial SQ SCH (08:00)
[2023-09-12] MEDS ORDERED: levoFLOXACIN-Levaquin 500mg/D5 100 ML IV SCH (08:00)
[2023-09-12] MEDS ORDERED: docusate sod 100mg capsule PO SCH (08:00)
[2023-09-12] MEDS ORDERED: aspirin 81mg, enteric-coated 1 TAB TABLET.DR PO SCH (08:00)
[2023-09-12 08:30] LABS: BASOPHILS # (AUTO) 0.1 X10'3 (0-0.2); BASOPHILS % (AUTO) 0.2 % (0-1); EOSINOPHILS % (AUTO) 0 % (0-6); HEMATOCRIT 38.8 % (42.0-52.0); LYMPHOCYTES # (AUTO) 1.4 X10'3 (1.1-4.8); LYMPHOCYTES % (AUTO) 5.7 % (21-51); MEAN CORPUSCULAR HEMOGLOBIN 29.2 PG (27.0-31.0); MEAN CORPUSCULAR HGB CONC 33.4 g/dL (33.0-36.5); MEAN CORPUSCULAR VOLUME 87.3 FL (78-98); MEAN PLATELET VOLUME 7.1 FL (7.4-10.4); MONOCYTES # (AUTO) 1.4 X10'3 (0-0.9); MONOCYTES % (AUTO) 5.6 % (2-12); NEUTROPHILS # (AUTO) 22.5 X10'3 (1.8-7.7); NEUTROPHILS % (AUTO) 88.5 % (42-75); PLATELET COUNT 536 X10'3 (140-440); RED BLOOD COUNT 4.44 X10'6 (4.70-6.10); RED CELL DISTRIBUTION WIDTH 13.3 % (11.5-14.5)
[2023-09-12 08:36] LABS: ALANINE AMINOTRANSFERASE 31 U/L (12-78); ALBUMIN 3.1 G/DL (3.4-5.0); ALBUMIN/GLOBULIN RATIO 0.7 (1.1-1.5); ALKALINE PHOSPHATASE 122 IU/L (46-116); ANION GAP 8 (8-16); ASPARTATE AMINO TRANSFERASE 16 U/L (10-37); BILIRUBIN,TOTAL 0.3 MG/DL (0.1-1.0); BLOOD UREA NITROGEN 29 MG/DL (7-18); BUN/CREATININE RATIO 22.7 (10.0-20.0); CALCIUM 8.6 MG/DL (8.5-10.1); CHLORIDE 101 MMOL/L (99-107); CREATININE 1.28 MG/DL (0.60-1.10); GLUCOSE 181 MG/DL (70-104); POTASSIUM 3.6 MMOL/L (3.5-5.1); SODIUM 135 MMOL/L (135-145); TOTAL CARBON DIOXIDE 26.2 MMOL/L (24-32); TOTAL PROTEIN 7.7 G/DL (6.4-8.2); eCRCL 80 ML/MIN; eGFR 65 ML/MIN
[2023-09-12 08:42] LABS: LIPASE 9 U/L (16-77)
[2023-09-12 08:51] LABS: PRO BRAIN NATRIURETIC PEPTIDE 173 PG/ML (0-125)
[2023-09-12 09:01] LABS: APTT 28 SECONDS (22-32); D-DIMER 0.84 MG/L FEU (0-0.50)
[2023-09-12 09:14] LABS: WHITE BLOOD COUNT 25.5 X10'3 (4.5-11.0)
[2023-09-12 11:06] VITALS: TEMP 98.3
[2023-09-12 14:13] VITALS: BP 141/90; PULSE 99; RESP 22; O2SAT 97
[2023-09-12 14:19] LABS: BILIRUBIN,URINE SMALL (Neg); CLARITY,URINE CLEAR (Clear); COLOR,URINE YELLOW (Yellow); GLUCOSE, URINE 250 mg/dl (Neg); KETONES,URINE 40 mg/dl (Neg); LEUKOCYTE ESTERASE ,URINE NEGATIVE (Neg); NITRITES, URINE NEGATIVE (Neg); OCCULT BLOOD,URINE MODERATE (Neg); PROTEIN,URINE TRACE mg/dl (Neg); UROBILINOGEN,URINE 0.2 E.U/dL (0.2-1.0)
[2023-09-12 14:31] LABS: UA COLLECTION TYPE VOIDED
[2023-09-12 14:32] LABS: BACTERIA,URINE 1+ /HPF (Neg); COARSE GRANULAR CAST 0-3 /LPF (NEGATIVE); FINE GRANULAR CAST 0-3 /LPF (NEGATIVE); MUCUS STRANDS FEW /LPF (Neg); SQUAMOUS EPITHELIAL CELL,UR FEW /LPF (FEW); WBC,URINE 0-4 /HPF (0-4)
[2023-09-12 14:33] LABS: TRANSITIONAL EPI CELLS,URINE FEW /HPF
[2023-09-12] MEDS ORDERED: temazepam 15mg capsule PO PRN (21:00)
[2023-09-12] MEDS ORDERED: insulin glargine (Lantus) pen - multi-dose SQ SCH (21:00)
== END 2023-09-12 15:40 | disposition left against medical advice (07) | DRG 420 ==
LOC: ER 14:19 → ED HOLD 09-12 00:50
PROVIDERS: ADMIT Surgery Surgical Critical Care; ATTEND Internal Medicine
DX: E10.10 Type 1 diabetes mellitus with ketoacidosis without coma (principal); G93.41 Metabolic encephalopathy; I21.A1 Myocardial infarction type 2; N17.9 Acute kidney failure, unspecified; E88.09 Other disorders of plasma-protein metabolism, not elsewhere classified; E10.22 Type 1 diabetes mellitus with diabetic chronic kidney disease; E87.1 Hypo-osmolality and hyponatremia; D72.829 Elevated white blood cell count, unspecified; I12.9 Hypertensive chronic kidney disease with stage 1 through stage 4 chronic kidney disease, or unspecified chronic kidney disease; N18.9 Chronic kidney disease, unspecified; Z72.0 Tobacco use; Z83.3 Family history of diabetes mellitus; Z91.148 Patient's other noncompliance with medication regimen for other reason; Z79.899 Other long term (current) drug therapy; Z88.8 Allergy status to other drugs, medicaments and biological substances
CPT/HCPCS: 36415; 36600; 70450; 71045; 80053; 81001; 82803; 82948; 83036; 83605; 83690; 83735; 83880; 84100; 84484; 85007; 85018; 85025; 85379; 85610; 85730; 87040; 96365; 96376; 99291; G0378; J1644; J1815; J1956; J7030

== ENCOUNTER 2024-08-11 05:30 | Emergency (ER) | payer OTHER, MEDICAID ==
[~2024-08-11] VITALS: Ht 172.7 cm; Wt 94.0 kg
[2024-08-11 05:54] VITALS: BP 157/85; PULSE 115; RESP 15; TEMP 98.3; O2SAT 97
[2024-08-11] MEDS ORDERED: DOXY100C43 PO (07:05)
[2024-08-11] MEDS: TETanus/Pertussis (Acell)/Diphther VAC/PF (Tdap-Adult) 0.5ml syringe IMVAC ONE (07:34)
== END 2024-08-11 07:39 | disposition home or self-care (01) ==
LOC: ER 05:31
DX: L03.113 Cellulitis of right upper limb (principal); E11.9 Type 2 diabetes mellitus without complications; F12.90 Cannabis use, unspecified, uncomplicated; Z88.8 Allergy status to other drugs, medicaments and biological substances; Z79.4 Long term (current) use of insulin; Z79.899 Other long term (current) drug therapy
CPT/HCPCS: 29130; 73140; 82948; 90471; 90715; 99283; 99284

== ENCOUNTER 2024-08-12 16:43 | Emergency (ER) | payer MEDICAID, OTHER ==
[~2024-08-12] VITALS: Ht 172.7 cm; Wt 93.6 kg
[~2024-08-12 16:43] MED LIST changes: +DOXY100C43 PO
[2024-08-12] MEDS: BUPIVAcaine/PF 7.5 mg/ml (0.75%) 30ml vial IJ ONE (17:32)
[2024-08-12] MEDS: LIDOcaine 1% 30ml preserv. free vial IJ ONE (17:32)
[2024-08-12 18:18] VITALS: BP 118/70; PULSE 64; RESP 18; TEMP 97.7; O2SAT 99
== END 2024-08-12 18:21 | disposition home or self-care (01) ==
LOC: ER 16:43
DX: L02.511 Cutaneous abscess of right hand (principal); F12.90 Cannabis use, unspecified, uncomplicated; E10.9 Type 1 diabetes mellitus without complications; F17.200 Nicotine dependence, unspecified, uncomplicated; Z79.4 Long term (current) use of insulin; Z88.8 Allergy status to other drugs, medicaments and biological substances; Z79.899 Other long term (current) drug therapy
CPT/HCPCS: 26010; 87070; 87077; 87186; 99283; A6407; 10060; A6449

== ENCOUNTER 2025-02-28 11:10 | Inpatient (IN) | payer MEDICAID, OTHER ==
[~2025-02-28] VITALS: Ht 172.7 cm; Wt 97.0 kg
[~2025-02-28 11:10] MED LIST changes: -DOXY100C43 PO
[2025-02-28 11:40] LABS: BASOPHILS # (AUTO) 0.1 X10'3 (0-0.2); BASOPHILS % (AUTO) 0.5 % (0-1); EOSINOPHILS # (AUTO) 0.1 X10'3 (0-0.9); EOSINOPHILS % (AUTO) 0.5 % (0-6); HEMATOCRIT 44.4 % (42.0-52.0); HEMOGLOBIN 14.9 g/dl (14.0-17.9); LYMPHOCYTES # (AUTO) 1.8 X10'3 (1.1-4.8); LYMPHOCYTES % (AUTO) 12.4 % (21-51); MEAN CORPUSCULAR HEMOGLOBIN 29.9 PG (27.0-31.0); MEAN CORPUSCULAR HGB CONC 33.6 g/dL (33.0-36.5); MEAN CORPUSCULAR VOLUME 88.9 FL (78-98); MEAN PLATELET VOLUME 8.3 FL (7.4-10.4); MONOCYTES # (AUTO) 0.7 X10'3 (0-0.9); MONOCYTES % (AUTO) 4.7 % (2-12); NEUTROPHILS # (AUTO) 12.1 X10'3 (1.8-7.7); NEUTROPHILS % (AUTO) 81.9 % (42-75); PLATELET COUNT 347 X10'3 (140-440); RED BLOOD COUNT 4.99 X10'6 (4.70-6.10); RED CELL DISTRIBUTION WIDTH 13.1 % (11.5-14.5); WHITE BLOOD COUNT 14.8 X10'3 (4.5-11.0)
[2025-02-28 12:02] LABS: ALANINE AMINOTRANSFERASE 24 U/L (12-78); ALBUMIN 4.3 G/DL (3.4-5.0); ALBUMIN/GLOBULIN RATIO 1.1 (1.1-1.5); ALKALINE PHOSPHATASE 147 IU/L (46-116); ANION GAP 14 (8-16); ASPARTATE AMINO TRANSFERASE 18 U/L (10-37); BILIRUBIN,TOTAL 0.3 MG/DL (0.1-1.0); BLOOD UREA NITROGEN 10 MG/DL (7-18); BUN/CREATININE RATIO 9.8 (10.0-20.0); CALCIUM 9.6 MG/DL (8.5-10.1); CHLORIDE 102 MMOL/L (99-107); CREATININE 1.02 MG/DL (0.60-1.10); GLUCOSE 316 MG/DL (70-104); LIPASE 12 U/L (16-77); POTASSIUM 3.6 MMOL/L (3.5-5.1); SODIUM 141 MMOL/L (135-145); TOTAL CARBON DIOXIDE 24.6 MMOL/L (24-32); TOTAL PROTEIN 8.3 G/DL (6.4-8.2); eCRCL 99 ML/MIN; eGFR 84 ML/MIN
--- NOTE | 2025-02-28 13:17 | Physician Documentation ---
History of Present Illness General Chief Complaint: Hyperglycemia Stated Complaint: POSS DKA Time Seen by MD: 12:59 Primary [facility] Mode of Arrival: Dropped Off History of Present Illness Initial Comments The patient is a 35-year-old male with type 1 diabetes, chronic kidney disease on an insulin pump who developed abdominal pain, nausea and vomiting over the past couple of days. Medication Reconciliation Allergies: Coded Allergies: insulin glargine (Unverified Allergy, Unknown, HIVES, 02/28/25) ondansetron (Verified Adverse Reaction, Intermediate, vomiting, 02/28/25) Scheduled Insulin Detemir (Levemir), 40 UNIT SQ BIDBD, (Reported) Insulin Lispro (Humalog), Unknown Dose SQ ACHS, (Reported) Nicotine 21 MG Patch* (Habitrol 21 MG Patch*), 1 PATCH TD DAILY Scheduled PRN Prochlorperazine Maleate (Prochlorperazine Maleate), 1 TAB PO Q6H PRN for nausea/vomiting Past Medical History Past Medical History: Diabetes, Cellulitis, MRSA Abscess Past Surgical History: no surgical history Alcohol Use: None Drug Use: marijuana Lives In: Home Review of Systems ROS Constitutional: Denies chills, fatigue, fever, weight gain or weight loss. HEENT: Denies hearing loss, sinus pressure or visual changes. Respiratory: Denies cough, shortness of breath or wheezing. Cardiovascular: Denies chest pain, pain while walking (claudication), edema or palpitations. Gastrointestinal: Nausea, vomiting and abdominal pain. Genitourinary: Denies painful urination (dysuria), excessive amount of urine (polyuria) or urinary frequency. Metabolic/Endocrine: Denies cold intolerance, heat intolerance, excessive thirst (polydipsia) or excessive hunger (polyphagia). Neurological: Denies dizziness, extremity numbness, extremity weakness, headaches, seizures or tremors. Psychiatric: Denies anxiety or depression. Integumentary: Denies breast discharge, breast lump, hives, mole change(s), rash or skin lesion. Musculoskeletal: Denies back pain, joint pain, joint swelling or neck pain. Hematologic: Denies easily bleeding, easily bruises, lymphedema or issues with blood clots. Immunologic: Denies food allergies or seasonal allergies. Physical Exam Physical Exam Vital Signs: Source: Oral, Heart Rate: 59, Respiratory Rate: 19, BP: 156/94, P ulse Oximetry: 98, Weight: 97.000 Oxygen Flow Rate: 0 Physical Exam Physical Exam Vitals and nursing note reviewed. Constitutional: General: Patient is awake, alert, oriented x 4 in no acute distress and well appearing. Speech is clear and lucid. Appearance: Normal appearance. Patient is not ill-appearing, toxic-appearing or diaphoretic. HENT: Head: Normocephalic and atraumatic. Mouth/Throat: Mouth: Mucous membranes are moist. Pharynx: Oropharynx is clear. Eyes: General: No scleral icterus. Extraocular Movements: Extraocular movements intact. Pupils: Pupils are equal, round, and reactive to light. Cardiovascular: Rate and Rhythm: Normal rate and regular rhythm. Heart sounds: No murmur heard. Pulmonary: Effort: No respiratory distress. Breath sounds: No wheezing, rhonchi or rales. Abdominal: General: There is no distension. Palpations: There is no fluid wave, hepatomegaly or mass. Tenderness: Epigastric abdominal tenderness without rebound. Musculoskeletal: General: No swelling or deformity. Skin: Coloration: Skin is not jaundiced. Findings: No erythema or rash. Neurological: Mental Status: Patient is alert. Progress Results/Orders Results/Orders Orders - KRYSTYNA GALINDO MD Straight Cath For Urine Sample (02/28/25 11:19) Abg (Arterial Blood Gas) (02/28/25 13:06) Chest,Single View (02/28/25 13:44) Page Hospitalist (02/28/25 15:07) Ringers Solution, Lacted (Lactated Ringe (02/28/25 15:25) Completed Orders - KRYSTYNA GALINDO MD Cbc/Diff (02/28/25 11:19) BMP (02/28/25 11:19) Lipase (02/28/25 11:19) CMP (02/28/25 11:19) Acetone, Serum (02/28/25 13:06) Ethanol (02/28/25 13:06) MG (02/28/25 13:06) Normal Saline 1000ml (Sodium Chloride 10 (02/28/25 13:10) Prochlorperazine Inj (Compazine Inj) (02/28/25 13:10) Diphenhydramine Inj (Benadryl Inj.) (02/28/25 13:10) Potassium Cl 10meq/100ml Bag (Potassium (02/28/25 13:10) Pantoprazole 40mg Iv (Protonix 40mg Iv) (02/28/25 13:15) Chest,Single View (02/28/25 13:44) Ua W/Microscopic, Cult If Ind (02/28/25 13:20) Medications Received in ER Medications (Trade) Dose Ordered Sig/Verna Route PRN Reason Start Time Stop Time Status Last Admin Dose Admin Sodium Chloride 1,000 ml @ 1,000 mls/hr ONCE ONCE IV 02/28/25 13:10 02/28/25 14:09 DC 02/28/25 13:35 1,000 MLS/HR (Compazine inj) 10 mg ONCE ONCE IV 02/28/25 13:10 02/28/25 13:13 DC 02/28/25 13:34 10 MG (Benadryl inj.) 25 mg ONCE ONCE IV 02/28/25 13:10 02/28/25 13:13 DC 02/28/25 13:34 25 MG Potassium Chloride 100 ml @ 100 mls/hr Q1H IV 02/28/25 13:10 02/28/25 14:09 DC 02/28/25 13:35 100 MLS/HR (Protonix 40mg IV) 40 mg ONCE ONCE IV 02/28/25 13:15 02/28/25 13:20 DC 02/28/25 13:35 40 MG Vital Signs 02/28/25 02/28/25 02/28/25 02/28/25 11:12 12:00 12:02 14:14 Pulse 66 59 87 Resp 25 21 19 12 B/P (MAP) 142/76 156/94 (114) 166/74 (104) Pulse Ox 99 98 98 O2 Flow Rate 0 0 0 Laboratory Tests Test 02/28/25 11:15 02/28/25 11:29 02/28/25 13:19 02/28/25 13:20 Glucometer 249 H White Blood Count 14.8 H Red Blood Count 4.99 Hemoglobin 14.9 Hematocrit 44.4 Mean Corpuscular Volume 88.9 Mean Corpuscular Hemoglobin 29.9 Mean Corpuscular Hemoglobin Concent 33.6 Red Cell Distribution Width 13.1 Platelet Count 347 Mean Platelet Volume 8.3 Neutrophils (%) (Auto) 81.9 H Lymphocytes (%) (Auto) 12.4 L Monocytes (%) (Auto) 4.7 Eosinophils (%) (Auto) 0.5 Basophils (%) (Auto) 0.5 Neutrophils # (Auto) 12.1 H Lymphocytes # (Auto) 1.8 Monocytes # (Auto) 0.7 Eosinophils # (Auto) 0.1 Basophils # (Auto) 0.1 CBC Comment Sodium Level 141 Potassium Level 3.6 Chloride Level 102 Carbon Dioxide Level 24.6 Anion Gap 14 Blood Urea Nitrogen 10 Creatinine 1.02 Estimated GFR/1.73 m2 84 BUN/Creatinine Ratio 9.8 L Glucose Level 316 H Calcium Level 9.6 Total Bilirubin 0.3 Aspartate Amino Transf (AST/SGOT) 18 Alanine Aminotransferase (ALT/SGPT) 24 Alkaline Phosphatase 147 H Total Protein 8.3 H Albumin 4.3 Globulin 4.0 Albumin/Globulin Ratio 1.1 Lipase 12 L Chemistry Comments Magnesium Level 1.6 Ethyl Alcohol Level < 10 Acetone Level Negative Urine Specimen Description Voided Urine Color Yellow Urine Clarity Slightly cloudy Urine pH 8.5 Urine Specific Eldridge 1.020 Urine Protein 100 H Urine Glucose (UA) 500 H Urine Ketones 40 H Urine Occult Blood Negative Urine Nitrite Negative Urine Bilirubin Small Urine Urobilinogen 1.0 Urine Leukocyte Esterase Negative Urine RBC None seen Urine WBC 0-4 Urine Squamous Epithelial Cells Few Urine Bacteria Few Urine Mucus Many Urine Sperm Few Urine Culture Indicated Not ind Volume Urine Centrifuged 10 ml Urine Comment Test 02/28/25 13:21 Venous Blood pH 7.538 H Medical Decision Making Findings This 35-year-old male presents with nausea, vomiting and abdominal pain consistent with his type 1 diabetes out of control. The patient's laboratory studies are not indicative of ketoacidosis but he has intractable nausea vomiting that began this morning and he is high risk for developing DKA. He will benefit from admission with IV hydration and antiemetics. Departure Disposition: ADMITTED INPATIENT Admitted to Inpatient Unit: to hospitalist Admission Level of Care: PCU Impression: Primary Impression: Nausea & vomiting Additional Impression: Insulin dependent diabetes mellitus Condition: Stable Referrals: NO PRIMARY CARE PROVIDER (PCP) Signature Scribe Signature: . Attestation: KRYSTYNA JOE MD Feb 28, 2025 13:17
[2025-02-28] MEDS: diphenhydrAMINE 50 mg/ml inj IV ONE (13:34)
[2025-02-28] MEDS: proCHLORperazine 10 MG/2 ml inj IV ONE (13:34)
[2025-02-28] MEDS: normal saline 1000ml 1,000 ML IV ONE (13:35)
[2025-02-28] MEDS: pantoprazole 40 MG vial IV ONE (13:35)
[2025-02-28] MEDS: potassium CL 10mEq/100ml bag 100 ML IV SCH (13:35)
[2025-02-28 14:17] LABS: BILIRUBIN,URINE SMALL (Neg); CLARITY,URINE SLIGHTLY CLOUDY (Clear); COLOR,URINE YELLOW (Yellow); GLUCOSE, URINE 500 mg/dl (Neg); KETONES,URINE 40 mg/dl (Neg); LEUKOCYTE ESTERASE ,URINE NEGATIVE (Neg); NITRITES, URINE NEGATIVE (Neg); OCCULT BLOOD,URINE NEGATIVE (Neg); PH,URINE 8.5 (4.8-8.0); PROTEIN,URINE 100 mg/dl (Neg)
[2025-02-28 14:23] LABS: ACETONE NEGATIVE (NEGATIVE)
[2025-02-28 14:24] LABS: UA COLLECTION TYPE VOIDED
[2025-02-28 14:25] LABS: BACTERIA,URINE FEW /HPF (Neg); MUCUS STRANDS MANY /LPF (Neg); RBC,URINE NONE SEEN /HPF (0-2)
[2025-02-28 14:27] LABS: SQUAMOUS EPITHELIAL CELL,UR FEW /LPF (FEW); WBC,URINE 0-4 /HPF (0-4)
[2025-02-28 14:28] LABS: SPERM FEW /HPF (NEGATIVE)
--- NOTE | 2025-02-28 14:30 | RADIOLOGY REPORT ---
DI CHEST,SINGLE VIEW, HISTORY: Diabetes COMPARISON: DI CHEST,SINGLE VIEW on DOS: 09/11/23 DI CHEST,SINGLE VIEW on DOS: 09/11/23 TECHNICAL DATA: 1 view of the chest was obtained. FINDINGS: Lines and tubes: None Cardiomediastinal silhouette: normal Pulmonary vasculature: normal Lung expansion: normal Lung airspace: normal Lung interstitium: normal Pleura: normal Pneumothorax: no Bones: Unremarkable Other: no IMPRESSION: No acute intrathoracic abnormality.
[2025-02-28 14:38] LABS: ETHANOL < 10 MG/DL (<10); MAGNESIUM 1.6 MG/DL (1.5-2.4)
[2025-02-28] MEDS ORDERED: potassium Cl 20 mEq SR tablet PO PRN ×2 (15:40)
[2025-02-28] MEDS ORDERED: mag hydrox/Alum hydrox/simeth 30ml oral suspension PO PRN (15:40)
[2025-02-28] MEDS ORDERED: magnesium Cl slow-release 64mg tablet PO PRN (15:40)
[2025-02-28] MEDS ORDERED: magnesium sulf-water 4G/100mL 100 ML IV PRN (15:40)
[2025-02-28] MEDS ORDERED: HYDROcodone/acetaminophen 5mg/325mg tablet PO PRN (15:40)
[2025-02-28] MEDS ORDERED: magnesium sulf-water 2g/50mL 50 ML IV PRN (15:40)
[2025-02-28] MEDS ORDERED: acetaminophen 325mg tablet PO PRN ×2 (15:40)
[2025-02-28] MEDS ORDERED: potassium Cl 40MEQ/1/2NS 520ml 520 ML IV PRN (15:40)
[2025-02-28] MEDS ORDERED: ondansetron/PF 4mg/2ml inj IV PRN (15:40)
[2025-02-28] MEDS ORDERED: dextrose 50%-water 50ml dispensing syringe IV PRN ×2 (15:45)
[2025-02-28] MEDS ORDERED: DEXTROSE 15 GM of carb/4 tabs (each vial/BOTTLE has 4 tablets) PO PRN ×2 (15:45)
[2025-02-28] MEDS ORDERED: glucagon, human recombinant 1mg kit SUBCUT PRN (15:45)
[2025-02-28] MEDS: metoclopramide 5 mg/ml inj IV ONE (15:46)
[2025-02-28] MEDS: ringers solution, lacted 1,000 ML IV SCH (15:47)
[2025-02-28] MEDS ORDERED: metoclopramide 5 mg/ml inj IV PRN (15:50)
[2025-02-28] MEDS: normal saline 1000ml 1,000 ML IV SCH (15:51)
--- NOTE | 2025-02-28 16:18 | HISTORY AND PHYSICAL-Residence ---
History & Physical Providers to CC Resident Creating Document: LESA BUENO RES ~ History of Present Illness Primary Medical Doctor: JENNA cristina Reason for Admit\Complaint: Severe hypoglycemia, persistent nausea vomiting History of Present Illness The patient is a 35-year-old male with past history of Type 1 DM, presenting to the ER with chief complaints of worsening nausea, vomiting, hot and cold sweats since the past 2 days. Since this morning, nausea and vomiting episodes have increased, now happening 20-30 minutes. He also reports associated chills, increased thirst and stomach pain. He has had two episodes of DKA in the past - 1 year ago and 7 years ago, and reports experiencing similar similar symptoms then. He does not report consuming any outside food. He also reports no fever, loose stools or urinary symptoms. The patient is on a regulated insulin pump at home. Discussed advanced care directives and wishes to be a full code. Allergies: Coded Allergies: insulin glargine (Unverified Allergy, Unknown, HIVES, 02/28/25) ondansetron (Verified Adverse Reaction, Intermediate, vomiting, 02/28/25) Home Medications Home Medications Active Habitrol 21 MG Patch* (Nicotine) 1 Each Patch.td24 1 Patch TD DAILY Do not smoke while using the nicotine patch Prochlorperazine Maleate 10 Mg Tablet 1 Tab PO Q6H PRN 7 Days Reported Humalog (Insulin Lispro) 100 Unit/1 Ml Cartridge Unknown Dose SQ ACHS Levemir (Insulin Detemir) 100 Unit/1 Ml Vial 40 Unit SQ BIDBD Past Medical History Past Medical History Type 1 DM Past Surgical History Surgical History Comment None Family History Family History: FH: diabetes mellitus Past Social History Smoking: Cigarettes (1 pack/day - since teenage years), Greater than 1 pack/day Alcohol Use: Occasionally Drug Use: None, Marijuana Lives with: Other (Girlfriend) Lives In: Home ROS All Other Systems: Reviewed and Negative ROS Reviewed in full. All negative except for pertinent positive HPI. Exam Vitals: Vital Signs Date Time Temp Pulse Resp B/P (MAP) Pulse Ox O2 Delivery O2 Flow Rate FiO2 02/28/25 14:14 87 12 166/74 (104) 98 0 General: General: Awake and Alert, mild acute distress. HEENT: Conjunctiva pink, Sclera clear, Mucus Membranes dry. Neck: Supple without masses and tenderness. Resp: Unlabored. Equal breath sounds bilaterally. Heart: Regular rhythm, normal S1 and S2, no rub, murmur or gallop. Abdomen: Soft and non tender no organomegaly. Normal bowel sounds x4 quadrant normoactive. No guarding or rigidity. Extremities: Normal ROM, no swelling, nontender. No cyanosis,clubbing or edema. EXECUTIVE SECRETARY: No gross motor or sensory abnormalities. Skin: Warm and Dry. Diagnostic Data Last Recorded Lab Results: 02/28/25 1129 02/28/25 1129 Advance Care Planning Advanced Care plannin - 30 Minutes Additional Plan The patient is a 35-year-old male with past history of Type 1 DM, presenting to the ER with chief complaints of worsening nausea, vomiting, hot and cold sweats since the past 2 days Severe Hyperglycemia Persistent nausea and vomiting Moderate dehydration History of type 1 diabetes on insulin pump Blood glucose is 316 mg/dl, and venous blood pH is 7.538. Anion gap is 14. HbA1C is elevated at 9.4. BUN (10), Creatinine (1.02) are within normal limits. AST and ALT are within normal limits with elevated ALP - 147 Urinalysis is positive for high glucose, ketones and protein. Lipase is unremarkable. Aggressive Fluid resuscitation IV NS 2L bolus in ED Continue LR at 100ml/hr High dose Hyperglycemia protocol started. Nausea/Vomiting: IV Compazine 5mg Q6 PRN Code Status: Full code DVT prophylaxis: None patient is ambulatory Analgesia/sedation: None Line/tube: PIV GI prophylaxis: Protonix Nutrition: NPO Prognosis: Guarded Disposition: Continue medical management. Lesa Bueno MD. IM Resident PGY-2 Date of Service: Feb 28, 2025 Billing Provider: MAI PELAYO MD Common Visit Codes: [id number] INP/OBS CARE (HIGH) Secondary Visit Codes: [id number] CARE PLAN 30 MINUTES LESA BUENO RES Feb 28, 2025 16:18 MAI PELAYO MD Feb 28, 2025 18:25
[2025-02-28 16:21] LABS: HEMOGLOBIN A1C 9.4 % (4.5-6.2)
[2025-02-28] MEDS: INSULIN LISPRO 100 UNIT/ML INSULN.PEN MULTI-DOSE SQ SCH (17:00)
[2025-02-28] MEDS: proCHLORperazine 10 MG/2 ml inj IV PRN (17:26)
[2025-02-28 19:34] VITALS: BP 161/96; PULSE 73; RESP 22; TEMP 98; O2SAT 100
[2025-02-28] MEDS: K and/or MAG REPLACEMENT MC SCH (20:00)
[2025-02-28] MEDS ORDERED: LEVEMIR SQ SCH (20:00)
[2025-02-28] MEDS ORDERED: insulin glargine (Lantus) pen - multi-dose SQ SCH (21:00)
[2025-02-28 22:00] VITALS: BP 117/71; PULSE 97; RESP 20; TEMP 99.2; O2SAT 99
[2025-02-28 22:57] VITALS: RESP 20; O2SAT 99
[2025-03-01 06:18] LABS: BASOPHILS % (AUTO) 0.2 % (0-1); EOSINOPHILS % (AUTO) 0.1 % (0-6); HEMOGLOBIN 13.9 g/dl (14.0-17.9); LYMPHOCYTES # (AUTO) 2.3 X10'3 (1.1-4.8); LYMPHOCYTES % (AUTO) 13.2 % (21-51); MEAN CORPUSCULAR HEMOGLOBIN 30.3 PG (27.0-31.0); MONOCYTES # (AUTO) 1.2 X10'3 (0-0.9); NEUTROPHILS # (AUTO) 13.9 X10'3 (1.8-7.7); NEUTROPHILS % (AUTO) 79.5 % (42-75); PLATELET COUNT 287 X10'3 (140-440); RED CELL DISTRIBUTION WIDTH 13.6 % (11.5-14.5); WHITE BLOOD COUNT 17.4 X10'3 (4.5-11.0)
[2025-03-01 06:30] LABS: INR 1.1 INR; PROTHROMBIN TIME 10.9 SECONDS (9.0-12.0)
[2025-03-01 06:44] LABS: ALBUMIN 3.6 G/DL (3.4-5.0); ANION GAP 10 (8-16); BLOOD UREA NITROGEN 10 MG/DL (7-18); BUN/CREATININE RATIO 12.3 (10.0-20.0); CALCIUM 8.7 MG/DL (8.5-10.1); CHLORIDE 102 MMOL/L (99-107); CREATININE 0.81 MG/DL (0.60-1.10); GLUCOSE 241 MG/DL (70-104); MAGNESIUM 1.5 MG/DL (1.5-2.4); PHOSPHORUS 3.2 MG/DL (2.3-4.5); POTASSIUM 3.6 MMOL/L (3.5-5.1); SODIUM 138 MMOL/L (135-145); TOTAL CARBON DIOXIDE 25.6 MMOL/L (24-32); eCRCL 124 ML/MIN; eGFR > 90 ML/MIN
[2025-03-01 07:14] VITALS: BP 94/45; PULSE 96; RESP 18; TEMP 97; O2SAT 96
[2025-03-01 08:40] VITALS: RESP 66; O2SAT 96
[2025-03-01] MEDS: pantoprazole 40 MG vial IV SCH (08:41)
[2025-03-01 10:00] VITALS: BP 138/81; PULSE 71; RESP 16; TEMP 97.3; O2SAT 99
--- NOTE | 2025-03-01 14:08 | DISCHARGE SUMMARY-Residence ---
Discharge Summary Providers to CC Resident Creating Document: SURJIT DUCKWORTH, RES ~ Discharge Summary Admission Diagnosis: SEVERE HYPERGLYCEMIA Hospital Course DATE OF ADMISSION: 02/28/2025 DATE OF DISCHARGE: 03/01/2025 Discharge Diagnosis\Comment: Severe Hyperglycemia Persistent nausea and vomiting Moderate dehydration Uncontrolled diabetes mellitus History of type 1 diabetes on insulin pump Nausea/Vomiting: Operations\Procedures: None Consultants: None Complications: None Condition on DC: Stable Discharge Summary: HPI: The patient is a 35-year-old male with past history of Type 1 DM, presenting to the ER with chief complaints of worsening nausea, vomiting, hot and cold sweats since the past 2 days. Since this morning, nausea and vomiting episodes have increased, now happening 20-30 minutes. He also reports associated chills, increased thirst and stomach pain. He has had two episodes of DKA in the past - 1 year ago and 7 years ago, and reports experiencing similar similar symptoms then. He does not report consuming any outside food. He also reports no fever, loose stools or urinary symptoms. The patient is on a regulated insulin pump at home. Discussed advanced care directives and wishes to be a full code. Hospital course: 35-year-old male patient came to the hospital with chief complaint of worsening nausea vomiting and cold sweats during the past two days. Upon evaluation in the emergency department the patient was found with severe hyperglycemia. The patient was admitted for further management. Venous pH showed 7.538, the patien t was started on IV fluids based on ringer lactate at a rate of 100 mL/hour. Upon the next day the patient reports significant improvement of symptoms. Eager to be discharged despite white blood cell count is elevated probably reactive. We will recommended the patient that we need to monitor for another day. The patient decided to leave AMA stating that two days father's day, the patient understood the risk of leaving the hospital despite explanation of elevated WBC and risks of diabetes compensation he still decided to leave AMA. Discharge course: The patient left AMA. *Problems/Diagnosis: (1) Uncontrolled diabetes mellitus Status: Acute Total Time Spent on D/C: > 30 Minutes Date of Service: Mar 01, 2025 Billing Provider: MAI PELAYO MD Common Visit Codes: [id number] DISCH DAY <30MIN Problem Qualifiers (1) Uncontrolled diabetes mellitus: Diabetes mellitus type: type 1 SURJIT DUCKWORTH, RES Mar 01, 2025 13:57 MAI PELAYO MD Mar 01, 2025 17:17
== END 2025-03-01 13:20 | disposition left against medical advice (07) | DRG 420 ==
LOC: ER 11:11 → ED HOLD 15:41 → ORTHO 4S 19:35
PROVIDERS: ADMIT Internal Medicine; ATTEND Internal Medicine
DX: E10.65 Type 1 diabetes mellitus with hyperglycemia (principal); E10.22 Type 1 diabetes mellitus with diabetic chronic kidney disease; E86.0 Dehydration; Z96.41 Presence of insulin pump (external) (internal); N18.9 Chronic kidney disease, unspecified; Z88.8 Allergy status to other drugs, medicaments and biological substances; Z83.3 Family history of diabetes mellitus; Z79.4 Long term (current) use of insulin; Z53.29 Procedure and treatment not carried out because of patient's decision for other reasons
CPT/HCPCS: 36415; 71045; 80048; 80053; 80320; 81001; 82009; 82800; 82948; 83036; 83605; 83690; 83735; 84100; 84145; 85025; 85610; 85651; 87081; 96374; 96375; 99285; G0378; J0780; J1200; J1815; J2470; J2765; J3480; J7030; J7120